=== PATIENT | male | born 1955 | race African-American/Black ===

== ENCOUNTER 2016-10-24 09:11 | Inpatient (IN) ==
[2016-10-24] MEDS ORDERED: SODIUM CHLORIDE 0.9% 500 ML IV STA (09:39)
--- NOTE | 2016-10-24 09:51 | Emergency Department Note ---
Arrival - Arrival Chief Complaint: Weakness ED Nursing Triage Note: pt states felt fine yesterday and this started having genral weakness and fever. denies n/v/cough. pt had cva 09/26 with rt side weakness Mode of Arrival: Stretcher Limitations: No Limitations Source: Patient, Family Time Seen by Provider: 10/24/16 09:39 - History of Present Illness HPI Narrative: This 60-year-old black male presents with abrupt onset of profound weakness associated with low-grade temperature. The family states he was his normal self and in fact they thought yesterday was 1 of his best days. The patient is status post prior CVA with mild right-sided weakness and walks with a cane normally. Today upon awakening he had problems with incontinence and ataxia but at present is alert and oriented 3. The patient and the family denies nausea, vomiting, chills, chest pain, or cough. Currently the patient appears in no acute medical distress. Onset (ago): hour(s) (She presents 18 hours since onset of symptoms) Allergies/Adverse Reactions: Allergies Allergy/AdvReac Type Severity Reaction Status Date / Time No Known Allergies Allergy Unverified 10/24/16 09:20 Review of System - Review of System 12 point system: reviewed and no additional remarkable complaints except as stated - Review of System Constitutional: Present: as per HPI Respiratory: Present: as per HPI Cardiovascular: Present: as per HPI Gastrointestinal: Present: as per HPI Neurological: Present: as per HPI Medical,Surgical,& Family Hx - Medical History Cardio: History of: Hypertension Neurology: History of: Cerebrovascular Accident (09/26) Gastrointestinal: History of: GERD - Social History Smoking Status: Smoker, status unknown Frequency of Alcohol Use: None Type of Drug Use: None Exam Physical Examination: GENERAL: Chronically ill-appearing black male in no acute distress. HEENT: Normocephalic. No trauma. Moist mucous membranes. EOMI. PERRLA. ENT NML NECK: Supple. No adenopathy. CARDIAC: Regular. No murmurs. Heart rate 130 CHEST: Clear to auscultation. No respiratory distress. O2 sat 97% ABDOMEN: Soft. Nontender. Active bowel sounds. EXTREMITIES: No trauma. Normal ROM. No pedal edema. SKIN: No diaphoresis. No rash. NEURO: Alert. Oriented 3. Although a history of right sided motor weakness strength appears equal at this time with sensory and vibratory intact. No focal deficits. Vital Signs: Vital Signs Temperature 99.0 F 10/24/16 09:15 Pulse Rate 134 H 10/24/16 09:15 Respiratory Rate 18 10/24/16 09:23 Blood Pressure 112/85 10/24/16 09:15 O2 Sat by Pulse Oximetry 97 10/24/16 09:15 Course - Reevaluation(s) Reevaluation #1: Advised patient and family the need for hospitalization. - Consultations Consultation #1: Discussed with hospitalist service who will admit for further evaluation treatment. Results - Labs CBC & BMP: 10/24/16 09:50 10/24/16 09:50 Labs: I have reviewed the laboratory noted the elevated white blood cell count. - Diagnostic Findings Procedure: CT: image reviewed by me, report reviewed by me (Head: Status post right occipital craniotomy, small vessel ischemia, cerebral atrophy noted), X- ray: image reviewed by me, report reviewed by me (Right pleural effusion in association with right lower lobe pneumonia) Disposition Clinical Impression: Right lower lobe pneumonia, Right pleural effusion Case discussed with: patient, patient's family Disposition: Still a Patient Condition: Guarded Time of Disposition: 10:45
[2016-10-24 09:57] LABS: Basophils # 0.1 10*3/uL (0.0-0.2); Basophils % 0.2 % (0.0-0.8); Hematocrit 41.4 VOL% (42.0-52.0); Immature Granulocytes % 1.8 %; Immature Granulocytes Absolute 0.65 #; Lymphocytes % 2.8 % (21.2-54.2); Mean Corpuscular HGB Conc 33.8 GM/DL (32-36); Mean Corpuscular Hemoglobin 29 PG (27-34); Mean Corpuscular Volume 85.2 FL (87-102); Monocytes % 5.6 % (1.7-12.7); Neutrophils # 31.7 10*3/uL (1.4-7.4); Neutrophils % 89.6 % (38.7-73.9); Platelet Count 352 T/CUMM (130-400); Red Blood Count 4.86 MC/CUMM (3.8-5.5); White Blood Count 35.4 T/CUMM (4-12)
[2016-10-24 10:05] LABS: INR 1.3; PT Patient Result 14.4 SECS
--- NOTE | 2016-10-24 10:12 | CT Report ---
CT brain Indication: Mental status changes Comparison: None available Technique: Axial CT imaging of the brain is performed without contrast with 3 mm increments. Findings: No evidence of hemorrhage, mass mass effect midline shift or acute infarct seen. There is moderate diffuse cerebral atrophy. There are areas of decreased white matter density in both cerebral hemispheres mostly periventricular in location. The ventricles and cisterns are normal in caliber. Right occipital craniotomy changes are present, appear within normal limits. No other cranial or skull base abnormality is identified. Impression: No evidence of acute process demonstrated. This CT exam was performed using one or more the following dose reduction techniques: Automated exposure control, adjustment of the MA and/or KV according to patient size, or use of iterative reconstruction technique. PROCEDURE INTERPRETED AT [facility] DEPARTMENT OF RADIOLOGY Final Report Signed by: Dr. Irving Garibay
[2016-10-24 10:15] LABS: Giant Platelets Few; Hypochromasia 1+; Lymphocytes 3 % (20-55); Ovalocytes Slight; Platelet Estimate Adequate; Segmented Neutrophils 92 % (50-85); Total Cells Counted 100
--- NOTE | 2016-10-24 10:15 | XRay Report ---
XR chest 1V portable Indication: Altered mental status Comparison: None available Findings: The heart and mediastinum are normal in size and configuration. The pulmonary vascularity is normal in caliber. There is large right pleural effusion and increased right lower lung density. No other lung infiltrates, effusions, pneumothorax or other abnormality is demonstrated. Impression: Large right pleural effusion with increased right lower lung density could indicate pneumonia. PROCEDURE INTERPRETED AT [facility] DEPARTMENT OF RADIOLOGY Final Report Signed by: Dr. Irving Garibay
[2016-10-24 10:27] LABS: Alanine Aminotransferase 15 U/L (16-61); Albumin 2.3 G/DL (3.4-5.0); Alkaline Phosphatase 128 U/L (45-117); Aspartate Amino Transferase 20 U/L (0-37); Blood Urea Nitrogen 7 MG/DL (7-18); Calcium 8.9 MG/DL (8.5-10.1); Glucose 142 MG/DL (74-106); Osmolality,Calculated 269.1 MOS/KG (273-304); Potassium 4.2 MMOL/L (3.5-5.1); Sodium 135 MMOL/L (136-145); Total Protein 7.1 G/DL (6.4-8.3); Troponin I Only < 0.015 NG/ML (0.00-0.045)
[2016-10-24] MEDS ORDERED: LEVOFLOXACIN INJ 750 MG in PREMIX 1 EACH IV STA (10:35)
[2016-10-24] MEDS ORDERED: ALBUTEROL/IPRATROPIUM 3 ML NEB RESP TX STA (10:35)
[2016-10-24] MEDS ORDERED: LEVOFLOXACIN INJ 150 ML IV ONE (10:48)
--- NOTE | 2016-10-24 11:01 | EKG Report ---
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
[2016-10-24 11:06] LABS: Apearance,Urine CLOUDY (Clear); Bilirubin,Urine Negative (Negative); Blood, Urine Negative (Negative); Glucose,Urine (UA) 50 mg/dL (Negative); Hyaline Casts,Urine 22 /LPF (0-3); Ketones,Urine 5 mg/dL (Negative); Mucus,Urine Many /LPF (Occasional); Nitrite,Urine Negative (Negative); Protein,Urine 100 MG/DL; RBC,Urine 8 /HPF (0-4); Squamous Epithelial Cell,Urine Occasional /HPF (0-10); Urine Color Yellow (Yellow); Urine Specific Gravity 1.015 (1.001-1.035); WBC,Urine 231 /HPF (0-6)
[2016-10-24 11:10] LABS: Barbiturates Screen,Urine Negative (Negative); Benzodiazepines Screen,Urine Negative (Negative); Cannabinoid Screen,Urine Negative (Negative); Opiate Screen,Urine Negative (Negative); Phencyclidine Screen,Urine Negative (Negative)
--- NOTE | 2016-10-24 11:42 | Hospitalist History & Physical ---
Addendum entered and electronically signed by Elva Grider NP 10/24/16 12:21: Patient Sepsis initiated related to HR 133, WBC 35.4, ordered Lactic Acid and pending results. (Temp 99.0) Original Note: Assessment and Plan - Time spent with patient Time spent with patient: Greater than 30 minutes (1) Generalized weakness Status: Acute Current Visit: Yes (2) Pneumonia Status: Acute Assessment and plan: 10/24/16 - admit on monitored bed Blood cultures (collected in ED) start IV antibiotics (levaquin given in ED) duonebs urine culture (collected in ED) IV hydration repeat labs in a.m. will discuss with Dr Chopra for further recommendations with care Current Visit: Yes History of Present Illness Chief complaint: generalized weakness, fever, pneumonia History of present illness: Mr. Arreguin is a 60 year old black male w/PMHx hypertension, CVA (september 2016 w/rt sided weakness), GERD presented to the ED for further evaluation of this a.m. feeling generalized weakness and an episode of incontinence without LOC or confusion. He reports some shortness of breath this a.m. Reports has had weakness more on the right side since stroke in september but is able to ambulate with assistance of getting up and then using a cane but was unable to get out of bed this morning in time to go to the bathroom and he urinated on himself. Denies any nausea, vomiting, chest pain or headaches. IN ED: WBC 35.4, Na 135, Anion Gap 15.2, Glucose 142, ALT 15, Alkaline Phos 128, TCK 38. CXR: large right pleural effusion with increased right lower lung density could indicate pneumonia. Head CT: no evidence of acute process. EKG: sinus tachy rate 129, right ventricular hypertrophy no acute injury. After discussion with Dr Man in ED and Dr Chopra with Hospital Medicine, it was agreed to admit on monitor bed for further evaluation. Home medications to be reviewed and reconciliation to follow. Allergies Allergy/AdvReac Type Severity Reaction Status Date / Time No Known Allergies Allergy Unverified 10/24/16 09:20 Medical,Surgical,& Family Hx - Medical History Cardio: History of: Hypertension Neurology: History of: Cerebrovascular Accident (09/26 with right sided weakness) Gastrointestinal: History of: GERD - Social History Smoking Status: Smoker, status unknown Frequency of Alcohol Use: None Type of Drug Use: None Lives With:: lives with Son Functional capacity: uses cane/walker 12 point system: reviewed and no additional remarkable complaints except as stated - Constitutional Constitutional: Present: fever(s) - Cardiovascular Cardiovascular: Present: dyspnea on exertion. Absent: chest pain at rest, chest pain with activity - Respiratory Respiratory: Present: cough. Absent: wheezing - Genitourinary Genitourinary: Absent: dysuria Exam - Constitutional Vitals: Period Temp Pulse Resp BP Sys/Palm Pulse Ox Last 24 Hr 99.0 F-99.0 F 134-134 18-18 112-112/85-85 97 General appearance: normal weight, no acute distress - Head Head exam: Present: normal inspection - ENT ENT exam: Present: other (very minimal tongue deviation to the Right (hx: right sided CVA 09/2016)) - Neck Neck exam: Present: normal inspection - Respiratory Respiratory exam: Present: rales. Absent: wheezes - Cardiovascular Cardiovascular exam: Present: tachycardia (133) - GI/Abdominal GI/Abdominal exam: Present: normal bowel sounds, soft. Absent: guarding, tenderness, rebound - Extremities Exam Extremities exam: Present: normal inspection, full ROM (minimally weak on the right side compared to the left (hx: CVA 09/2016)). Absent: edema - Back Exam Back exam: Present: normal inspection - Neurological Exam Neurological exam: Present: alert, oriented X3, CN II-XII intact - Psychiatric Psychiatric exam: Present: normal affect, normal mood. Absent: agitated, anxious - Skin Skin exam: Present: normal color, warm, dry Results - Labs CBC & BMP: 10/24/16 09:50 10/24/16 09:50 Lab Results: I have reviewed the past 24 hour labs - EKG EKG results: interpreted by ERMD - Diagnostic Findings Procedure: Chest x-ray: report reviewed by me (Large right pleural effusion with increased right lower lung density indicate pneumonia), CT: report reviewed by me (Head: Nothing acute)
[2016-10-24] MEDS ORDERED: ONDANSETRON 4 MG/2 ML VIAL IV PRN (12:15)
[2016-10-24] MEDS ORDERED: ACETAMINOPHEN 325 MG TABLET PO PRN (12:15)
[2016-10-24] MEDS ORDERED: LEVOFLOXACIN INJ 750 MG in PREMIX 1 EACH IV SCH (12:30)
[2016-10-24] MEDS: SODIUM CHLORIDE 0.9% 1,000 ML IV SCH ×2 (13:24→21:38)
--- NOTE | 2016-10-24 16:12 | Pulmonology Consult Note ---
Assessment and Plan (1) Empyema Status: Acute Assessment and plan: His chest x-ray and clinical picture certainly looks like he could have empyema. He will need a thoracentesis and likely a tube Current Visit: Yes (2) History of cerebral hemorrhage Status: Acute Assessment and plan: Patient says he has had a craniotomy at [place] for cerebral hemorrhage. Current Visit: Yes (3) Pneumonia Status: Acute Assessment and plan: Patient will be treated for pneumonia Current Visit: Yes History of Present Illness Chief complaint: Shortness of breath History of present illness: Mr. Arreguin is a 60 year old black male that has a history of hypertension and has been a smoker. He has a history of GE reflux. He apparently had an aneurysm that ruptured he said he had a craniotomy at [place]. He apparently is quite debilitated from this but he does walk with a walker. He said the past couple days he has not been able to get out of bed. He comes in now with a low-grade fever and elevated white count and looks like he has pneumonia and possible empyema. He says he has not been vomiting and he does cough a little bit. He is not complaining of much shortness of breath or chest pain. He denies having trouble swallowing. He does not appear to be very active and certainly appears chronically ill. Home Medications Medication Instructions Recorded Confirmed Type Benzonatate [Tessalon] 100 mg PO TID PRN 10/24/16 10/24/16 History Carvedilol 25 mg PO BID 10/24/16 10/24/16 History FLUoxetine [PROzac] 20 mg PO QAM 10/24/16 10/24/16 History Methocarbamol Tab [Robaxin Tab] 750 mg PO BID 10/24/16 10/24/16 History Pantoprazole Tab [Protonix Tab] 40 mg PO QAM 10/24/16 10/24/16 History Allergies Allergy/AdvReac Type Severity Reaction Status Date / Time No Known Allergies Allergy Unverified 10/24/16 09:20 - Constitutional Constitutional: Present: chills, fatigue, fever(s), weakness - EENT Eyes: Absent: loss of vision Ears: Absent: decreased hearing Nose, mouth and throat: Absent: dysphagia, headache(s), sinus pressure - Cardiovascular Cardiovascular: Present: dyspnea. Absent: chest pain at rest, edema, orthopnea , PND - Respiratory Respiratory: Present: cough, pain on inspiration, change in phlegm color. Absent: wheezing - Gastrointestinal Gastrointestinal: Absent: abdominal pain, change in bowel habits, dysphagia, nausea, vomiting - Genitourinary Genitourinary: Absent: dysuria, nocturia, urinary frequency - Musculoskeletal Musculoskeletal: Absent: arthralgias - Neurological Neurological: Present: abnormal speech, focal weakness - Psychiatric Psychiatric: Absent: anxiety Exam (Pulmonay) H&P - Constitutional Vitals: Period Temp Pulse Resp BP Sys/Palm Pulse Ox Last 24 Hr 98.7 F-99.0 F 134-134 18-20 102-112/68-85 97 General appearance: no acute distress, under weight, other (He looks comfortable in bed and is chronically ill-appearing) - Head Head exam: Present: normal inspection - Eye Eye exam: Present: EOMI. Absent: scleral icterus Pupils: Present: JONATHAN - ENT ENT exam: Present: normal exam - Neck Neck exam: Absent: lymphadenopathy, thyromegaly - Respiratory Respiratory exam: Present: decreased breath sounds (He does have diminished breath sounds in the right), rhonchi. Absent: wheezes - Cardiovascular Cardiovascular exam: Present: regular rate and rhythm, tachycardia. Absent: gallop, systolic murmur - GI/Abdominal GI/Abdominal exam: Present: normal bowel sounds, soft. Absent: organomegaly, tenderness - Extremities Exam Extremities exam: Absent: calf tenderness, edema - Neurological Exam Neurological exam: Present: alert, motor sensory deficit (He does appear to be very weak) - Psychiatric Psychiatric exam: Present: normal affect - Skin Skin exam: Present: warm, dry Medical,Surgical,& Family Hx - Medical History Cardio: History of: Hypertension Neurology: History of: Cerebrovascular Accident (09/26 with right sided weakness) Gastrointestinal: History of: GERD - Social History Smoking Status: Former smoker Frequency of Alcohol Use: None Type of Drug Use: None Results - Labs CBC & BMP: 10/24/16 09:50 10/24/16 09:50 - Diagnostic Findings Procedure: Chest x-ray: image reviewed by me, report reviewed by me (Chest x- ray shows a right lower lobe consolidation with a fairly large effusion.)
[2016-10-24] MEDS: CLINDAMYCIN INJ 900 MG in PREMIX 1 EACH IV SCH ×2 (17:38→23:27)
[2016-10-25] MEDS: ALBUTEROL/IPRATROPIUM 3 ML NEB RESP TX PRN ×3 (01:11→17:36)
[2016-10-25 05:30] LABS: Basophils % 0.1 % (0.0-0.8); Eosinophils % 0.1 % (0.00-10.9); Hematocrit 33.4 VOL% (42.0-52.0); Hemoglobin 11.2 GM/DL (14.0-18.0); Immature Granulocytes % 1.3 %; Immature Granulocytes Absolute 0.38 #; Lymphocytes # 1.3 10*3/uL (1.4-4.0); Lymphocytes % 4.5 % (21.2-54.2); Mean Corpuscular HGB Conc 33.5 GM/DL (32-36); Mean Corpuscular Hemoglobin 29 PG (27-34); Mean Corpuscular Volume 85.6 FL (87-102); Mean Platelet Volume 9.3 FL (9.6-12.0); Monocytes # 1.9 10*3/uL (0.11-0.8); Monocytes % 6.4 % (1.7-12.7); Neutrophils # 25.5 10*3/uL (1.4-7.4); Neutrophils % 87.6 % (38.7-73.9); Platelet Count 296 T/CUMM (130-400); Red Cell Distribution Width 14.2 % (9.3-17.3); White Blood Count 29.1 T/CUMM (4-12)
[2016-10-25] MEDS: SODIUM CHLORIDE 0.9% 1,000 ML IV SCH ×2 (05:49→20:27)
[2016-10-25 05:52] LABS: Calcium 8.4 MG/DL (8.5-10.1); Osmolality,Calculated 274.5 MOS/KG (273-304); Potassium 3.6 MMOL/L (3.5-5.1)
[2016-10-25 06:03] LABS: Band Neutrophils 4 % (0-10); Eosinophils 1 % (0-10); Lymphocytes 3 % (20-55); Platelet Estimate Adequate; Segmented Neutrophils 89 % (50-85); Total Cells Counted 100
[2016-10-25 06:04] LABS: Giant Platelets Few; Hypochromasia 1+
[2016-10-25] MEDS: CLINDAMYCIN INJ 900 MG in PREMIX 1 EACH IV SCH ×3 (06:30→23:03)
--- NOTE | 2016-10-25 08:46 | Pulmonology Progress Note ---
Pulmonary - PN: Subj Interval history: Mr. Arreguin is a 60 year old black male that has a history of hypertension and has been a smoker. He has a history of GE reflux. He apparently had an aneurysm that ruptured he said he had a craniotomy at [place]. He apparently is quite debilitated from this but he does walk with a walker. He said the past couple days he has not been able to get out of bed. He comes in now with a low-grade fever and elevated white count and looks like he has pneumonia and possible empyema. He says he has not been vomiting and he does cough a little bit. He is not complaining of much shortness of breath or chest pain. He denies having trouble swallowing. He does not appear to be very active and certainly appears chronically ill. He said he was reasonably comfortable last night did not have any fever. He is not coughing up any sputum. He denies having much chest pain. Exam (Progress Note) - Constitutional Vitals: Period Temp Pulse Resp BP Sys/Palm Pulse Ox Last 24 Hr 97.5 F-99.0 F 82-134 16-20 102-121/67-85 97-99 Exam: General appearance: no acute distress, under weight, other (He looks comfortable in bed and is chronically ill-appearing. He still does not have any distress.) - Head Head exam: Present: normal inspection - Eye Eye exam: Present: EOMI. Absent: scleral icterus Pupils: Present: JONATHAN - ENT ENT exam: Present: normal exam - Neck Neck exam: Absent: lymphadenopathy, thyromegaly - Respiratory Respiratory exam: Present: He does have decreased breath sounds in the right base and his left lung is fairly clear. - Cardiovascular Cardiovascular exam: Present: regular rate and rhythm, tachycardia. Absent: gallop, systolic murmur - GI/Abdominal GI/Abdominal exam: Present: normal bowel sounds, soft. Absent: organomegaly, tenderness - Extremities Exam Extremities exam: Absent: calf tenderness, edema - Neurological Exam Neurological exam: Present: alert, motor sensory deficit (He does appear to be very weak) - Psychiatric Psychiatric exam: Present: normal affect - Skin Skin exam: Present: warm, dry Results - Labs CBC & BMP: 10/25/16 04:48 10/25/16 04:48 Assessment and Plan (1) Empyema Status: Acute Assessment and plan: His chest x-ray and clinical picture certainly looks like he could have empyema. Radiology will try to place a catheter today. Current Visit: Yes (2) History of cerebral hemorrhage Status: Acute Assessment and plan: Patient says he has had a craniotomy at [place] for cerebral hemorrhage. His CT is fairly stable at present. Current Visit: Yes (3) Pneumonia Status: Acute Assessment and plan: Patient will be treated for pneumonia. He will have a thoracentesis today. Current Visit: Yes
--- NOTE | 2016-10-25 10:11 | CT Report ---
CT chest w con Indication: Empyema Comparison: None available Technique: Axial CT imaging of the chest was done at 3 mm intervals with intravenous contrast. Contrast dose was Omnipaque 350. Findings: There is a multiloculated the large effusion on the right with near complete atelectasis of the right lower lobe. There are small pockets of air in some of the loculations present. Remaining lungs show no evidence of infiltrates or airspace disease. No nodule or mass is identified. No other effusion or pneumothorax is seen. Few nonenlarged lymph nodes are seen in the mediastinum. Otherwise the heart, mediastinum and great vessels appear within normal limits. No other abnormality is identified. Impression: Multiloculated effusion/empyema. No other evidence of abnormality demonstrated. This CT exam was performed using one or more the following dose reduction techniques: Automated exposure control, adjustment of the MA and/or KV according to patient size, or use of iterative reconstruction technique. PROCEDURE INTERPRETED AT [facility] DEPARTMENT OF RADIOLOGY Final Report Signed by: Dr. Irving Garibay
[2016-10-25] MEDS: LEVOFLOXACIN INJ 750 MG in PREMIX 1 EACH IV SCH (12:55)
--- NOTE | 2016-10-25 13:15 | Physician Query Form ---
CLICK EDIT DOCUMENT TO SELECT QUERY ANSWER --> OK --> SIGN Fatemeh Tong RN, CCDS Certified Clinical Continuity Person W) [phone] (f) [phone] [email or web address] PROVIDERS: Make your selection(s) from the choices in EACH section by typing an "x" and enter comments in the comment section. Please use your independent medical judgment in providing your response. This request does not imply that any particular answer is desired or expected. CLINICAL INDICATORS: (Providers should not edit this section) The medical record indicates that the patient was admitted with Pneumonia, urine leukocytes "Large H", Urine WBC 231#, WBC 35.4#, and the patient was placed on antibiotics. Based on the above, could you clarify the appropriate diagnosis, if significant , that supports the above abnormalities and additional evaluation, monitoring, and/or treatment rendered: ( ) Patient is not being monitored or treated for UTI ( x) Patient is being monitored or treated for UTI ( ) Other, please specify: ( ) Clinically unable to determine COMMENTS: PLEASE ALSO DOCUMENT RESPONSE IN PROGRESS NOTES AND/OR DISCHARGE SUMMARY Use of terms such as suspected, likely, or probable (associated with a specific diagnosis that is being evaluated, monitored, or treated as if it exists) are acceptable and can be restated in the discharge summary if not ruled out. MTDD
--- NOTE | 2016-10-25 16:28 | EKG Report ---
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
[2016-10-25] MEDS: PANTOPRAZOLE 40 MG TABLET PO SCH (17:11)
[2016-10-25] MEDS: TEMAZEPAM 15 MG CAPSULE PO PRN (20:28)
--- NOTE | 2016-10-25 20:44 | Hospitalist Progress Note ---
Assessment and Plan (1) Pneumonia Status: Acute Assessment and plan: Continue IV Antibiotics Current Visit: Yes Qualifiers: Pneumonia type: due to unspecified organism Laterality: right Lung location: lower lobe of lung Qualified Code(s): J18.1 - Lobar pneumonia, unspecified organism (2) Empyema Status: Acute Assessment and plan: Pt has a Right chest Tube. Appreciate Dr Sarthak chavez. Current Visit: Yes Hospitalist: Subjective Interval history: 60 yo M admitted with Pneumonia & Empyema. He is awake and comfortable. Exam - Constitutional Vitals: Period Temp Pulse Resp BP Sys/Palm Pulse Ox Last 24 Hr 97.5 F-98.4 F 80-104 16-20 107-134/65-80 95-100 General appearance: no acute distress - Head Head exam: Present: normal inspection - Eye Eye exam: Present: EOMI Pupils: Present: JONATHAN - Respiratory Respiratory exam: Present: rales, rhonchi - Cardiovascular Cardiovascular exam: Present: regular rate and rhythm - GI/Abdominal GI/Abdominal exam: Present: normal bowel sounds, soft - Extremities Exam Extremities exam: Present: normal inspection, normal capillary refill Results - Labs CBC & BMP: 10/25/16 04:48 10/25/16 04:48
[2016-10-25] MEDS: PIPERACILLIN/TAZOBACTAM 3,375 MG in SODIUM CHLORIDE 0.9% 100 ML IV SCH (23:59)
[2016-10-26] MEDS: CLINDAMYCIN INJ 900 MG in PREMIX 1 EACH IV SCH ×3 (06:08→22:17)
--- NOTE | 2016-10-26 08:26 | Hospitalist Progress Note ---
Assessment and Plan (1) Generalized weakness Status: Acute Current Visit: Yes (2) Pneumonia Status: Acute Assessment and plan: As noted above, he is presently being treated with intravenous Zosyn, levofloxacin, and clindamycin. He is being followed by Dr. De León pulmonary. Current Visit: Yes Qualifiers: Pneumonia type: due to unspecified organism Laterality: right Lung location: lower lobe of lung Qualified Code(s): J18.1 - Lobar pneumonia, unspecified organism (3) Empyema Status: Acute Assessment and plan: See above. Current Visit: Yes (4) History of cerebral hemorrhage Status: Acute Current Visit: Yes Hospitalist: Subjective Interval history: Mr. Arreguin is hospitalized with pneumonia and empyema. He is a severely debilitated 60-year-old -Prydeinig male who had a previous craniotomy for a ruptured intracranial aneurysm. He is being treated with intravenous Zosyn, levofloxacin, and clindamycin for his pneumonia and empyema. He is being followed by Dr. De León of pulmonary. Exam - Constitutional Vitals: Period Temp Pulse Resp BP Sys/Palm Pulse Ox Last 24 Hr 97.1 F-99.7 F 79-104 16-20 108-196/65-97 95-100 General appearance: no acute distress, under weight - Head Head exam: Present: normal inspection - Neck Neck exam: Present: normal inspection - Respiratory Respiratory exam: Present: other (Decreased right basilar breath sounds.) - Cardiovascular Cardiovascular exam: Present: regular rate and rhythm - GI/Abdominal GI/Abdominal exam: Present: normal bowel sounds, soft, other (Nontender with no palpable mass or hepatosplenomegaly.) - Extremities Exam Extremities exam: Present: normal inspection - Neurological Exam Neurological exam: Present: other (Lethargic) - Psychiatric Psychiatric exam: Present: flat affect - Skin Skin exam: Present: normal color, warm, intact Results - Labs CBC & BMP: 10/25/16 04:48 10/25/16 04:48
[2016-10-26] MEDS: PIPERACILLIN/TAZOBACTAM 3,375 MG in SODIUM CHLORIDE 0.9% 100 ML IV SCH ×3 (09:27→23:52)
[2016-10-26] MEDS: PANTOPRAZOLE 40 MG TABLET PO SCH (09:30)
--- NOTE | 2016-10-26 10:48 | Pulmonology Progress Note ---
Pulmonary - PN: Subj Interval history: This 60-year-old man had a loculated right pleural effusion drained yesterday by interventional radiology. The fluid looks opaque and yellow orange. Cultures have been sent. Gram stain showed some white cells but no bacteria. I do not see where any chemistries or written white cell count or AFB smears for cytology were done. We will see if there is some fluid left that it can be done upon. Patient feels really no different today. No chest x-ray today will order one for tomorrow. He seems to be eating and lucid. Exam (Progress Note) - Constitutional Vitals: Period Temp Pulse Resp BP Sys/Palm Pulse Ox Last 24 Hr 97.1 F-99.7 F 75-104 16-20 108-196/65-97 95-99 Exam: Patient is responsive. Vital signs normal. Pupils react to light. Throat is clear. Neck supple no bruits. Chest shows a pleural catheter coming from the anterior axillary line and right chest. The fluid is yellow orange and opaque. Chest shows a few rhonchi on the right side. Heart normal rate rhythm no murmurs. Abdomen soft nontender no masses. Extremities no clubbing cyanosis edema. Calves nontender. Results - Labs CBC & BMP: 10/25/16 04:48 10/25/16 04:48 Lab Results: I have reviewed the past 24 hour labs Assessment and Plan (1) Generalized weakness Status: Acute Assessment and plan: We will need physical therapy at some point. This is the result of a previous CVA. Current Visit: Yes (2) Empyema Status: Acute Assessment and plan: Presumably he has an empyema which is loculated on the right side. Cultures are pending. Did not have other studies to verify this. Current Visit: Yes (3) History of cerebral hemorrhage Status: Acute Assessment and plan: Patient is able to communicate without difficulty. Current Visit: Yes
[2016-10-26 11:53] LABS: Total Protein,Pleural Fluid 4.9 G/DL
[2016-10-26] MEDS: LEVOFLOXACIN INJ 750 MG in PREMIX 1 EACH IV SCH (14:42)
[2016-10-26] MEDS: SODIUM CHLORIDE 0.9% 1,000 ML IV SCH (16:15)
[2016-10-26 17:04] LABS: Lymphocytes,Pleural Fluid 90 %; Neutrophils,Pleural Fluid 10 %; RBC,Pleural Fluid 1002 T/CUMM
[2016-10-26] MEDS: TEMAZEPAM 15 MG CAPSULE PO PRN (20:59)
[2016-10-27 04:21] LABS: Basophils % 0.2 % (0.0-0.8); Eosinophils # 0.2 10*3/uL (0.0-0.87); Eosinophils % 2.1 % (0.00-10.9); Hematocrit 33.8 VOL% (42.0-52.0); Hemoglobin 11.3 GM/DL (14.0-18.0); Immature Granulocytes % 0.6 %; Immature Granulocytes Absolute 0.05 #; Lymphocytes % 10.6 % (21.2-54.2); Mean Corpuscular HGB Conc 33.4 GM/DL (32-36); Mean Corpuscular Hemoglobin 29 PG (27-34); Mean Corpuscular Volume 85.1 FL (87-102); Mean Platelet Volume 9.6 FL (9.6-12.0); Monocytes # 0.7 10*3/uL (0.11-0.8); Monocytes % 7.6 % (1.7-12.7); Neutrophils # 7.2 10*3/uL (1.4-7.4); Neutrophils % 78.9 % (38.7-73.9); Platelet Count 336 T/CUMM (130-400); Red Blood Count 3.97 MC/CUMM (3.8-5.5); Red Cell Distribution Width 14.3 % (9.3-17.3); White Blood Count 9.1 T/CUMM (4-12)
[2016-10-27 04:42] LABS: Calcium 8.2 MG/DL (8.5-10.1); Potassium 3.7 MMOL/L (3.5-5.1)
[2016-10-27] MEDS: CLINDAMYCIN INJ 900 MG in PREMIX 1 EACH IV SCH ×3 (06:07→22:22)
--- NOTE | 2016-10-27 08:50 | Hospitalist Progress Note ---
Assessment and Plan (1) Generalized weakness Status: Acute Current Visit: Yes (2) Pneumonia Status: Acute Assessment and plan: As noted above, he is presently being treated with intravenous Zosyn, levofloxacin, and clindamycin. He is being followed by Dr. Erickson pulmonary. He is status post thoracentesis for his right-sided empyema. Follow-up chest x- ray this morning appears to demonstrate a persistent effusion and infiltrate. Current Visit: Yes Qualifiers: Pneumonia type: due to unspecified organism Laterality: right Lung location: lower lobe of lung Qualified Code(s): J18.1 - Lobar pneumonia, unspecified organism (3) Empyema Status: Acute Assessment and plan: See above. Current Visit: Yes (4) History of cerebral hemorrhage Status: Acute Current Visit: Yes (5) UTI (urinary tract infection) Status: Acute Assessment and plan: Urine culture demonstrated pseudomonas aeruginosa, sensitive to levofloxacin. Current Visit: Yes Qualifiers: Urinary tract infection type: site unspecified Hospitalist: Subjective Interval history: Mr. Arreguin is hospitalized with pneumonia and empyema. He is status post right thoracentesis 2 days ago. Repeat chest x-ray performed this morning demonstrates a persistent large right infiltrate and probable persistent effusion. He is a severely debilitated 60-year-old -[place] male who had a previous craniotomy for a ruptured intracranial aneurysm. He is being treated with intravenous Zosyn, levofloxacin, and clindamycin for his pneumonia and empyema. He is being followed by Dr. Erickson of pulmonary. Exam - Constitutional Vitals: Period Temp Pulse Resp BP Sys/Palm Pulse Ox Last 24 Hr 97.3 F-98.2 F 80-87 18-22 105-123/60-81 93-100 General appearance: no acute distress, other (Chronically ill-appearing) - Head Head exam: Present: normal inspection - Neck Neck exam: Present: normal inspection - Respiratory Respiratory exam: Present: other (Absent right basilar breath sounds.) - Cardiovascular Cardiovascular exam: Present: regular rate and rhythm - GI/Abdominal GI/Abdominal exam: Present: normal bowel sounds, soft, other (Nontender with no palpable masses or hepatosplenomegaly.) - Extremities Exam Extremities exam: Present: normal inspection - Neurological Exam Neurological exam: Present: alert, oriented X3 - Skin Skin exam: Present: normal color, warm, intact Results - Labs CBC & BMP: 10/27/16 03:21 10/27/16 03:21
--- NOTE | 2016-10-27 10:12 | XRay Report ---
Single view the chest. Indication: Right-sided empyema. Comparison: October 24, 2016. There is a pigtail catheter in the right pleural space. Persistent extensive pleural and parenchymal abnormality on the right are unchanged. The left lung is clear. The heart is normal in size. Impression: Status post pigtail catheter placement. Extensive pleural and parenchymal abnormality of the right lung not significantly changed. PROCEDURE INTERPRETED AT [facility] DEPARTMENT OF RADIOLOGY Final Report Signed by: Dr. Joanie Chung
[2016-10-27] MEDS: PIPERACILLIN/TAZOBACTAM 3,375 MG in SODIUM CHLORIDE 0.9% 100 ML IV SCH ×3 (10:14→23:54)
[2016-10-27] MEDS: PANTOPRAZOLE 40 MG TABLET PO SCH (10:19)
--- NOTE | 2016-10-27 10:21 | Pulmonology Progress Note ---
Pulmonary - PN: Subj Interval history: This 60-year-old man had a loculated right pleural effusion drained yesterday by interventional radiology. The fluid looks opaque and yellow orange. Cultures have been sent. Gram stain showed some white cells but no bacteria. I do not see where any chemistries or written white cell count or AFB smears for cytology were done. We will see if there is some fluid left that it can be done upon. Patient feels really no different today. No chest x-ray today will order one for tomorrow. He seems to be eating and lucid. 10/27/2016 patient is afebrile has no new complaints. He is put out a total of 180 mL from the right pleural catheter. Chest x-ray shows little change. The pleural fluid showed 90% of the white cells were lymphocytes. LDH elevated.. Would be concerned about a chronic infection such as TB. Also will be concerned about a possible malignancy. With the long not expanding well may want to consider a larger chest tube or VATS procedure. Exam (Progress Note) - Constitutional Vitals: Period Temp Pulse Resp BP Sys/Palm Pulse Ox Last 24 Hr 97.3 F-98.2 F 79-87 16-22 105-136/60-92 93-100 Exam: Patient is responsive. Vital signs normal. Pupils react to light. Throat is clear. Neck supple no bruits. Chest shows a pleural catheter coming from the anterior axillary line and right chest. The fluid is yellow orange and opaque. Chest shows a few rhonchi on the right side. Heart normal rate rhythm no murmurs. Abdomen soft nontender no masses. Extremities no clubbing cyanosis edema. Calves nontender. Results - Labs CBC & BMP: 10/27/16 03:21 10/27/16 03:21 Lab Results: I have reviewed the past 24 hour labs - Diagnostic Findings Procedure: Chest x-ray: image reviewed by me (Unchanged. Pleural catheter and right pleural space. Opacification of about two thirds of the right chest.) Assessment and Plan (1) Generalized weakness Status: Acute Assessment and plan: We will need physical therapy at some point. This is the result of a previous CVA. Current Visit: Yes (2) Empyema Status: Acute Assessment and plan: Presumably he has an empyema which is loculated on the right side. Cultures are pending. Did not have other studies to verify this. 10/27/2016 apparent empyema however pleural fluid white count is primarily lymphocytic. This would suggest either a chronic infectious process or malignancy rather than an empyema. Cultures pending. May require further intervention. Current Visit: Yes (3) History of cerebral hemorrhage Status: Acute Assessment and plan: Patient is able to communicate without difficulty. Current Visit: Yes
[2016-10-27] MEDS: LEVOFLOXACIN INJ 750 MG in PREMIX 1 EACH IV SCH (14:34)
[2016-10-27] MEDS: TEMAZEPAM 15 MG CAPSULE PO PRN (20:21)
[2016-10-27] MEDS: SODIUM CHLORIDE 0.9% 1,000 ML IV SCH ×2 (20:23→22:23)
[2016-10-28] MEDS: CLINDAMYCIN INJ 900 MG in PREMIX 1 EACH IV SCH ×2 (06:15→16:12)
[2016-10-28] MEDS: PANTOPRAZOLE 40 MG TABLET PO SCH (09:06)
[2016-10-28] MEDS: PIPERACILLIN/TAZOBACTAM 3,375 MG in SODIUM CHLORIDE 0.9% 100 ML IV SCH ×2 (09:34→16:42)
--- NOTE | 2016-10-28 12:38 | Hospitalist Progress Note ---
Assessment and Plan (1) Pneumonia Status: Acute Assessment and plan: Continue IV Antibiotics Current Visit: Yes Qualifiers: Pneumonia type: due to unspecified organism Laterality: right Lung location: lower lobe of lung Qualified Code(s): J18.1 - Lobar pneumonia, unspecified organism (2) Empyema Status: Acute Assessment and plan: Pt has a Right chest Tube. Appreciate Dr Sarthak chavez. Current Visit: Yes Hospitalist: Subjective Interval history: 60-year-old male in the hospital for pneumonia and and right empyema, he has a right chest tube. He is awake and comfortable. Exam - Constitutional Vitals: Period Temp Pulse Resp BP Sys/Palm Pulse Ox Last 24 Hr 97.4 F-98.6 F 64-79 18-22 138-161/93-100 97-100 Exam: General: [No Acute Distress] HEENT: [Normocephalic, atraumatic, Extra ocular movements intact] Neck: [Supple, No JVD] Chest: [Clear to auscultation B/L] CV: [S1 + S2 audible without murmur, gallop or rub] Abd: [soft, NT, Non-distended, BS +] Ext: [No edema] Skin: [No purpura, bruising or rash] Rheumatologic: [No Joint deformities] Neurologic: [Awake and alert] Results - Labs CBC & BMP: 10/27/16 03:21 10/27/16 03:21 - Impressions Assessment and Plan Right lung pneumonia with Empyema Status: Acute Assessment and plan: This appears loculated, he has a chest tube in place. Pleural fluid white count is primarily lymphocytic, that points to a chronic infectious process or malignancy rather than an empyema. Follow-up cultures. Continue Levaquin, clindamycin and Zosyn Current Visit: Yes Pseudomonas UTI, POA Status: Acute Assessment and plan: This is a sensitive Pseudomonas, continue current antibiotics Current Visit: Yes Qualifiers: History of cerebral hemorrhage due to a ruptured intracranial aneurysm with previous craniotomy Status: Chronic Assessment and plan: This is stable Current Visit: No Physical deconditioning and generalized weakness Status: Acute Assessment and plan: Patient had limited mobility at baseline and was only moving with help of assistance and walker. Will initiate physical therapy once he is more improved from the lung standpoint. Ultimately he may need to go to a swing bed. Current Visit: Yes
--- NOTE | 2016-10-28 13:05 | Pulmonology Progress Note ---
Pulmonary - PN: Subj Interval history: Mr. Arreguin is a 60 year old black male that has a history of hypertension and has been a smoker. He has a history of GE reflux. He apparently had an aneurysm that ruptured he said he had a craniotomy at [facility]. He apparently is quite debilitated from this but he does walk with a walker. He said the past couple days he has not been able to get out of bed. He comes in now with a low-grade fever and elevated white count and looks like he has pneumonia and possible empyema. He says he has not been vomiting and he does cough a little bit. He is not complaining of much shortness of breath or chest pain. He denies having trouble swallowing. He does not appear to be very active and certainly appears chronically ill. He has been feeling okay over the weekend without a lot of fever. He does have a pneumothorax catheter in the right chest and is draining a little bit. His chest x-ray is not a lot better. He may need a decortication. Exam (Progress Note) - Constitutional Vitals: Period Temp Pulse Resp BP Sys/Palm Pulse Ox Last 24 Hr 97.4 F-98.6 F 64-79 18-22 138-161/93-100 97-100 Exam: General appearance: no acute distress, under weight, other (He looks comfortable in bed and is chronically ill-appearing. He still does not have any distress. He looks quite comfortable) - Head Head exam: Present: normal inspection - Eye Eye exam: Present: EOMI. Absent: scleral icterus Pupils: Present: JONATHAN - ENT ENT exam: Present: normal exam - Neck Neck exam: Absent: lymphadenopathy, thyromegaly - Respiratory Respiratory exam: Present: He still has decreased breath sounds on the right side. He is not wheezing. He has a small chest tube on the right. - Cardiovascular Cardiovascular exam: Present: regular rate and rhythm, tachycardia. Absent: gallop, systolic murmur - GI/Abdominal GI/Abdominal exam: Present: normal bowel sounds, soft. Absent: organomegaly, tenderness - Extremities Exam Extremities exam: Absent: calf tenderness, edema - Neurological Exam Neurological exam: Present: alert, motor sensory deficit (He does appear to be very weak) - Psychiatric Psychiatric exam: Present: normal affect - Skin Skin exam: Present: warm, dry Results - Labs CBC & BMP: 10/27/16 03:21 10/27/16 03:21 Assessment and Plan (1) Empyema Status: Acute Assessment and plan: His chest x-ray and clinical picture certainly looks like he could have empyema. Clinically he does not look bad but his chest x-ray still looks worrisome. He may need further drainage procedures. Current Visit: Yes (2) History of cerebral hemorrhage Status: Acute Assessment and plan: Patient says he has had a craniotomy at [facility] for cerebral hemorrhage. His CT is fairly stable at present. Current Visit: Yes (3) Pneumonia Status: Acute Assessment and plan: Patient will be treated for pneumonia. So far there is nothing growing on culture. His chest x-ray does not look any better. He may need decortication. Current Visit: Yes Qualifiers: Pneumonia type: due to unspecified organism Laterality: right Lung location: lower lobe of lung Qualified Code(s): J18.1 - Lobar pneumonia, unspecified organism
[2016-10-28] MEDS: ENOXAPARIN 40 MG/0.4 ML SYRINGE SUBCUT SCH (14:13)
[2016-10-28] MEDS: LEVOFLOXACIN INJ 750 MG in PREMIX 1 EACH IV SCH (20:52)
[2016-10-28] MEDS: SODIUM CHLORIDE 0.9% 1,000 ML IV SCH (20:52)
[2016-10-29] MEDS: CLINDAMYCIN INJ 900 MG in PREMIX 1 EACH IV SCH ×4 (00:50→23:54)
[2016-10-29] MEDS: PIPERACILLIN/TAZOBACTAM 3,375 MG in SODIUM CHLORIDE 0.9% 100 ML IV SCH ×3 (01:29→18:11)
--- NOTE | 2016-10-29 08:27 | CT Report ---
CT guided chest tube/cath, US thoracentesis w tube place Indication: Loculated right pleural fluid, likely empyema. CT-GUIDED RIGHT CHEST TUBE PLACEMENT Description: A formal timeout was performed. Initially, patient was evaluated with ultrasound and complex fluid was identified in the posterior right lung base. After sterile prep and drape the area, a vascular needle was advanced into the area under sonographic guidance. Captured sonographic image documents needle position. However, aspirates were attempted but unsuccessful, possibly due to either loculations or viscous fluid. At this point, decision was made to transfer to CT for CT guided placement. Patient was placed supine on the CT scanner and images of the chest obtained. This confirmed loculated pleural fluid on the right. From an anterolateral approach, skin was prepped and draped in a sterile fashion and a vascular needle advanced into the pleural fluid. There was return of straw-colored watery fluid was sent for culture and Gram stain. Needle was removed over wire and a 10 [place] pigtail drain catheter placed in the pleural fluid. Pigtail was formed and the catheter anchored with a StatLock device. It was connected to a Pleur-evac. During transfer the patient from the CT scan table to his bed, the catheter was inadvertently removed. Therefore, the above procedure was repeated in its entirety with replacement of a 10 [place] catheter at the same site. Impression: Placement of 10 [place] right pleural drain catheter as described. PROCEDURE INTERPRETED AT [facility] DEPARTMENT OF RADIOLOGY Final Report Signed by: Wilfred Thakkar M.D.
--- NOTE | 2016-10-29 08:30 | Pulmonology Progress Note ---
Pulmonary - PN: Subj Interval history: Mr. Arreguin is a 60 year old black male that has a history of hypertension and has been a smoker. He has a history of GE reflux. He apparently had an aneurysm that ruptured he said he had a craniotomy at [facility]. He apparently is quite debilitated from this but he does walk with a walker. He said the past couple days he has not been able to get out of bed. He comes in now with a low-grade fever and elevated white count and looks like he has pneumonia and possible empyema. He says he has not been vomiting and he does cough a little bit. He is not complaining of much shortness of breath or chest pain. He denies having trouble swallowing. He does not appear to be very active and certainly appears chronically ill. The patient has been on antibiotics and has a small catheter draining his chest. His chest x-ray is really not improved. Patient does not appear toxic with high fever. He says he is breathing okay. Nothing is showing up on culture. He has an indolent course but his lung still looks bad. Will ask surgery to see about a decortication. Exam (Progress Note) - Constitutional Vitals: Period Temp Pulse Resp BP Sys/Palm Pulse Ox Last 24 Hr 97.2 F-98.3 F 65-79 18-22 138-179/89-104 94-99 Exam: General appearance: no acute distress, under weight, other (He looks comfortable in bed and is chronically ill-appearing. He still does not have any distress. He looks quite comfortable) - Head Head exam: Present: normal inspection - Eye Eye exam: Present: EOMI. Absent: scleral icterus Pupils: Present: JONATHAN - ENT ENT exam: Present: normal exam - Neck Neck exam: Absent: lymphadenopathy, thyromegaly - Respiratory Respiratory exam: Present: He still has decreased breath sounds on the right side. He is not wheezing. He has a small chest tube on the right. He does not have much drainage from his tube. - Cardiovascular Cardiovascular exam: Present: regular rate and rhythm, tachycardia. Absent: gallop, systolic murmur - GI/Abdominal GI/Abdominal exam: Present: normal bowel sounds, soft. Absent: organomegaly, tenderness - Extremities Exam Extremities exam: Absent: calf tenderness, edema - Neurological Exam Neurological exam: Present: alert, motor sensory deficit (He does appear to be very weak) - Psychiatric Psychiatric exam: Present: normal affect - Skin Skin exam: Present: warm, dry Results - Labs CBC & BMP: 10/27/16 03:21 10/27/16 03:21 - Diagnostic Findings Procedure: Chest x-ray: image reviewed by me, report reviewed by me (Chest x- ray has not changed much.) Assessment and Plan (1) Empyema Status: Acute Assessment and plan: His chest x-ray and clinical picture certainly looks like he could have empyema. His pleural fluid is exudative but not terrible looking. His chest x- ray is not really clearing any. Will ask surgery to evaluate. Current Visit: Yes (2) History of cerebral hemorrhage Status: Acute Assessment and plan: Patient says he has had a craniotomy at [facility] for cerebral hemorrhage. His CT is fairly stable at present. Current Visit: Yes (3) Pneumonia Status: Acute Assessment and plan: Patient will be treated for pneumonia. So far there is nothing growing on culture. His chest x-ray does not look any better. He may need decortication. I will continue with his antibiotic therapy. Current Visit: Yes Qualifiers: Pneumonia type: due to unspecified organism Laterality: right Lung location: lower lobe of lung Qualified Code(s): J18.1 - Lobar pneumonia, unspecified organism
--- NOTE | 2016-10-29 08:35 | XRay Report ---
XR chest 1V portable Indication: Pneumonia with a pleural effusion Comparison: Chest x-ray October 27, 2016 Technique: Single frontal view of the chest. Findings: The cardiomediastinal silhouette is stable in configuration. Question mild interval decrease in right pleural fluid with moderate amount remaining. Significant atelectasis/consolidation remains within the right mid and lower lung. Right-sided chest tube again projects over the right lower lung. Visualized osseous and surrounding soft tissue structures appear grossly unchanged. IMPRESSION: As above. PROCEDURE INTERPRETED AT [facility] DEPARTMENT OF RADIOLOGY Final Report Signed by: Dr Vinh Caruso
[2016-10-29] MEDS: ENOXAPARIN 40 MG/0.4 ML SYRINGE SUBCUT SCH (09:03)
[2016-10-29] MEDS: PANTOPRAZOLE 40 MG TABLET PO SCH (09:04)
[2016-10-29] MEDS ORDERED: ALTEPLASE 2 MG VIAL INTRAPLEUR ONE (11:00)
[2016-10-29] MEDS ORDERED: ALTEPLASE 5 MG in SYRINGE 1 EACH INTRAPLEUR ONE (11:00)
--- NOTE | 2016-10-29 11:16 | Pathology Report from [facility] ---
[facility] ACCESSION # : [id number] PATIENT NAME : Roberto Arreguin ORDERING DR : CK LEWIS MD CLINICAL HX: Pneumonia with present pleural effusion; R/O cancer POST-OP DX: Same SPECIMEN INFO: Fluid,Pleural - 5 mls yellow, hazy with clot CLASS: I CLASS COMMENTS: Rare inflammatory cells, mesothelials, proteinaceous material. No atypia seen.CELL BLOCK: Same CLASS LEGEND: CLASS 0 Material inadequate for diagnosis because of (see comment) CLASS I Absence of atypical or abnormal cells CLASS II Atypical Cytology but no evidence of malignancy CLASS III Cytology suggestive of but not conclusive for malignancy CLASS IV Cytology strongly suggestive of malignancy CLASS V Cytology conclusive for malignancy COLLECTED DATE: 10/28/2016 [facility] REPORT DATE: 10/29/2016 ELECTRONICALLY SIGNED BY: Flavio Miranda III, M.D. 10/29/2016 - 8:18:13 [facility]RON
--- NOTE | 2016-10-29 13:09 | Cardiothoracic Consult ---
Assessment and Plan - Time spent with patient Time spent with patient: Greater than 30 minutes (1) Empyema Status: Acute Assessment and plan: 60-year-old male with loculated right pleural effusion. The patient had an IR placed drain which failed to drain the right pleural cavity completely. I injected 5 mg of TPA mixed with 50 cc of saline into the drain with hopes to break the loculations and eventually drained the chest cavity. We will repeat this another time if it failed to help this time. If he continues to have persistent loculated pleural effusion he will need decortication by early next week. Current Visit: Yes History of Present Illness - Data of Consult Patient: new to practice Consult date: 10/29/16 - Consult Narrative Reason for consult: Persistent loculated pleural effusion History of present illness: Mr. Arreguin is a 60 year old male who has been having right pleural effusion. The patient has been a symptomatically. An IR drain was placed however it failed to drain the fluid completely. I was consulted for other options to drain the right pleural cavity. CC: Keny Chopra MD - Home Medications and Allergies Home Medications: Home Medications Medication Instructions Recorded Confirmed Type Benzonatate [Tessalon] 100 mg PO TID PRN 10/24/16 10/24/16 History Carvedilol 25 mg PO BID 10/24/16 10/24/16 History FLUoxetine [PROzac] 20 mg PO QAM 10/24/16 10/24/16 History Methocarbamol Tab [Robaxin Tab] 750 mg PO BID 10/24/16 10/24/16 History Pantoprazole Tab [Protonix Tab] 40 mg PO QAM 10/24/16 10/24/16 History Allergies/Adverse Reactions: Allergies Allergy/AdvReac Type Severity Reaction Status Date / Time No Known Allergies Allergy Unverified 10/24/16 09:20 12 point system: reviewed and no additional remarkable complaints except as stated (HPI) Medical,Surgical,& Family Hx - Medical History Cardio: History of: Hypertension Neurology: History of: Cerebrovascular Accident (09/26 with right sided weakness) Gastrointestinal: History of: GERD - Social History Smoking Status: Former smoker Frequency of Alcohol Use: None Type of Drug Use: None Physical Examination Vital Signs Temp Pulse Resp BP Pulse Ox 99.0 F 134 H 18 112/85 97 10/24/16 09:15 10/24/16 09:15 10/24/16 09:15 10/24/16 09:15 10/24/16 09:15 General: Present: Appears Well HEENT: Present: PERRL Neck: Present: Supple Neck Cardiac: Present: Reg Rate and Rhythm Lungs: Present: Bibasilar Rales, Wheezes, Absent Breath Sounds (Right side) Result/EKG - Labs CBC & BMP: 10/27/16 03:21 10/27/16 03:21
--- NOTE | 2016-10-29 13:11 | Operative Note ---
Date of procedure: 10/29/16 Pre-op diagnosis: Persistent pleural effusion Post-op diagnosis: same Procedure: Bedside instillation of TPA and to the chest tube The drain was disconnected from the pleural VAC. The area was prepped and draped in a sterile fashion. I injected 50 cc of saline mixed with the 5 mg of TPA. I clamped the tube at this point. I instructed the nurse to keep the patient in 45 for 1 hour. Flat for 1 hour. Then half an hour on each side prior to connecting the tube back to suction. The nurse understood and she will follow the plan. The patient tolerated the procedure well. Surgeon / Physician: Adonay Parry Estimated blood loss: none Specimens: none sent Condition: stable Results - Labs CBC & BMP: 10/27/16 03:21 10/27/16 03:21 Discharge Plan - Discharge Medications No Action Methocarbamol Tab [Robaxin Tab] 750 mg PO BID Carvedilol 25 mg PO BID FLUoxetine [PROzac] 20 mg PO QAM Benzonatate [Tessalon] 100 mg PO TID PRN PRN Reason: Cough Pantoprazole Tab [Protonix Tab] 40 mg PO QAM - Follow Up or Referral - Forms/Instructions
[2016-10-29] MEDS: SODIUM CHLORIDE 0.9% 1,000 ML IV SCH (15:40)
--- NOTE | 2016-10-29 16:04 | Hospitalist Progress Note ---
Assessment and Plan (1) Pneumonia Status: Acute Assessment and plan: Continue IV Antibiotics Current Visit: Yes Qualifiers: Pneumonia type: due to unspecified organism Laterality: right Lung location: lower lobe of lung Qualified Code(s): J18.1 - Lobar pneumonia, unspecified organism (2) Empyema Status: Acute Assessment and plan: Pt has a Right chest Tube. Appreciate Dr Sarthak chavez. Current Visit: Yes Hospitalist: Subjective Interval history: 58-year-old male with pneumonia and empyema, his breathing is comfortable. Exam - Constitutional Vitals: Period Temp Pulse Resp BP Sys/Palm Pulse Ox Last 24 Hr 97.2 F-98.3 F 65-90 18-22 144-179/89-104 94-99 Exam: General: [No Acute Distress] HEENT: [Normocephalic, atraumatic, Extra ocular movements intact] Neck: [Supple, No JVD] Chest: [Clear to auscultation B/L] CV: [S1 + S2 audible without murmur, gallop or rub] Abd: [soft, NT, Non-distended, BS +] Ext: [No edema] Skin: [No purpura, bruising or rash] Rheumatologic: [No Joint deformities] Neurologic: [Awake and alert] Results - Labs CBC & BMP: 10/27/16 03:21 10/27/16 03:21 - Impressions Assessment and Plan (1) Pneumonia Status: Acute Assessment and plan: Continue IV Antibiotics Current Visit: Yes Qualifiers: Pneumonia type: due to unspecified organism Laterality: right Lung location: lower lobe of lung Qualified Code(s): J18.1 - Lobar pneumonia, unspecified organism (2) Empyema Status: Acute Assessment and plan: Pt has a Right chest Tube, but does have a loculated empyema. He received TPA in the pleural cavity by cardiothoracic surgery, may need decortication if loculations fail to respond. Current Visit: Yes
[2016-10-29] MEDS: LEVOFLOXACIN INJ 750 MG in PREMIX 1 EACH IV SCH (21:59)
[2016-10-30] MEDS: HYDROmorphone 2 MG/1 ML VIAL IV PRN ×2 (00:39→21:26)
[2016-10-30] MEDS: PIPERACILLIN/TAZOBACTAM 3,375 MG in SODIUM CHLORIDE 0.9% 100 ML IV SCH ×3 (01:33→16:44)
[2016-10-30] MEDS: CLINDAMYCIN INJ 900 MG in PREMIX 1 EACH IV SCH ×3 (10:19→23:56)
[2016-10-30] MEDS: ENOXAPARIN 40 MG/0.4 ML SYRINGE SUBCUT SCH (10:33)
[2016-10-30] MEDS: PANTOPRAZOLE 40 MG TABLET PO SCH (10:33)
--- NOTE | 2016-10-30 10:50 | Pulmonology Progress Note ---
Pulmonary - PN: Subj Interval history: Mr. Arreguin is a 60 year old black male that has a history of hypertension and has been a smoker. 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 He apparently is quite debilitated from this but he does walk with a walker. He said the past couple days he has not been able to get out of bed. He comes in now with a low-grade fever and elevated white count and looks like he has pneumonia and possible empyema. He says he has not been vomiting and he does cough a little bit. He is not complaining of much shortness of breath or chest pain. He denies having trouble swallowing. He does not appear to be very active and certainly appears chronically ill. The patient had TPA placed in his catheter and does have a little more drainage now. He still looks reasonably comfortable without any fever or shortness of breath. Will check another chest x-ray tomorrow. Exam (Progress Note) - Constitutional Vitals: Period Temp Pulse Resp BP Sys/Palm Pulse Ox Last 24 Hr 97.0 F-97.9 F 75-90 20-22 140-163/85-106 93-98 Exam: General appearance: no acute distress, under weight, other (He looks alert and comfortable sitting up in bed.) - Head Head exam: Present: normal inspection - Eye Eye exam: Present: EOMI. Absent: scleral icterus Pupils: Present: JONATHAN - ENT ENT exam: Present: normal exam - Neck Neck exam: Absent: lymphadenopathy, thyromegaly - Respiratory Respiratory exam: Present: He still has decreased breath sounds on the right side. He is not wheezing. He has a small chest tube on the right. He does not have much drainage from his tube. - Cardiovascular Cardiovascular exam: Present: regular rate and rhythm, tachycardia. Absent: gallop, systolic murmur - GI/Abdominal GI/Abdominal exam: Present: normal bowel sounds, soft. Absent: organomegaly, tenderness - Extremities Exam Extremities exam: Absent: calf tenderness, edema, no signs of phlebitis - Neurological Exam Neurological exam: Present: alert, motor sensory deficit (He does appear to be very weak) - Psychiatric Psychiatric exam: Present: normal affect - Skin Skin exam: Present: warm, dry Results - Labs CBC & BMP: 10/27/16 03:21 10/27/16 03:21 Assessment and Plan (1) Empyema Status: Acute Assessment and plan: His chest x-ray and clinical picture certainly looks like he could have empyema. His pleural fluid is exudative but not terrible looking. His chest x- ray is not really clearing any. He did get TPA in his tube yesterday. He does have a little more drainage now. Will repeat a chest x-ray tomorrow. Current Visit: Yes (2) History of cerebral hemorrhage Status: Acute Assessment and plan: Patient says he has had a craniotomy at [place] for cerebral hemorrhage. His CT is fairly stable at present. Current Visit: Yes (3) Pneumonia Status: Acute Assessment and plan: Patient will be treated for pneumonia. So far there is nothing growing on culture. Clinically he seems to be doing okay and will repeat a chest x-ray. Current Visit: Yes Qualifiers: Pneumonia type: due to unspecified organism Laterality: right Lung location: lower lobe of lung Qualified Code(s): J18.1 - Lobar pneumonia, unspecified organism
--- NOTE | 2016-10-30 13:37 | Physician Query Form ---
CLICK EDIT DOCUMENT TO SELECT QUERY ANSWER --> OK --> SIGN Fatemeh Tong RN, CCDS Certified Clinical Assistant Research Scientist W) [phone] (f) [phone] [email or web address] PROVIDERS: Make your selection(s) from the choices in EACH section by typing an "x" and enter comments in the comment section. Please use your independent medical judgment in providing your response. This request does not imply that any particular answer is desired or expected. CLINICAL INDICATORS: (Providers should not edit this section) The below diagnosis was documented in the record, but is not consistently noted in subsequent documentation. The medical record indicates that the patient was admitted with Pneumonia, "Sepsis initiated related to HR 133, WBC 35.4, ordered Lactic Acid", and the patient is on antibiotics. Diagnosis: SEPSIS Please clarify the following: ( x) The above diagnosis was monitored, evaluated, and/or treated and is a confirmed diagnosis ( ) The above diagnosis was ruled out ( ) The above diagnosis is still a likely, suspected, probable diagnosis ( ) Other, please specify: ( ) Clinically unable to determine COMMENTS: PLEASE ALSO DOCUMENT RESPONSE IN PROGRESS NOTES AND/OR DISCHARGE SUMMARY Use of terms such as suspected, likely, or probable (associated with a specific diagnosis that is being evaluated, monitored, or treated as if it exists) are acceptable and can be restated in the discharge summary if not ruled out. MTDD
--- NOTE | 2016-10-30 15:53 | Hospitalist Progress Note ---
Assessment and Plan (1) Pneumonia Status: Acute Assessment and plan: Continue IV Antibiotics Current Visit: Yes Qualifiers: Pneumonia type: due to unspecified organism Laterality: right Lung location: lower lobe of lung Qualified Code(s): J18.1 - Lobar pneumonia, unspecified organism (2) Empyema Status: Acute Assessment and plan: Pt has a Right chest Tube. Appreciate Dr Sarthak chavez. Current Visit: Yes Hospitalist: Subjective Interval history: 60-year-old male hospital for treatment of pneumonia with empyema. He is breathing better. Exam - Constitutional Vitals: Period Temp Pulse Resp BP Sys/Palm Pulse Ox Last 24 Hr 97.0 F-97.9 F 75-88 20-22 140-163/85-106 93-98 Exam: General: [No Acute Distress] HEENT: [Normocephalic, atraumatic, Extra ocular movements intact] Neck: [Supple, No JVD] Chest: [Clear to auscultation B/L] CV: [S1 + S2 audible without murmur, gallop or rub] Abd: [soft, NT, Non-distended, BS +] Ext: [No edema] Skin: [No purpura, bruising or rash] Rheumatologic: [No Joint deformities] Neurologic: [Awake and alert] Results - Labs CBC & BMP: 10/27/16 03:21 10/27/16 03:21 - Impressions Assessment and Plan (1) Pneumonia with sepsis, POA Status: Acute Assessment and plan: Continue IV Antibiotics Levaquin, Zosyn and clindamycin Current Visit: Yes Qualifiers: Pneumonia type: due to unspecified organism Laterality: right Lung location: lower lobe of lung Qualified Code(s): J18.1 - Lobar pneumonia, unspecified organism (2) Empyema Status: Acute Assessment and plan: Pt has a Right chest Tube, but does have a loculated empyema. He received TPA in the pleural cavity by cardiothoracic surgery 10/29, may need decortication if loculations fail to respond. Monitor serial chest x-rays. Current Visit: Yes
[2016-10-30] MEDS: SODIUM CHLORIDE 0.9% 1,000 ML IV SCH ×3 (20:58→23:56)
[2016-10-30] MEDS: LEVOFLOXACIN INJ 750 MG in PREMIX 1 EACH IV SCH (21:02)
[2016-10-30 21:56] LABS: TB Ag minue Nil Result 0 IU/mL
[2016-10-31] MEDS: PIPERACILLIN/TAZOBACTAM 3,375 MG in SODIUM CHLORIDE 0.9% 100 ML IV SCH ×3 (01:18→18:47)
--- NOTE | 2016-10-31 07:16 | XRay Report ---
Exam: XR chest 1V portable Date: 10/31/2016 4:00 AM Indication: Follow-up effusion thoracotomy tube Comparison: 10/29/2016 Technical AP Findings:: Low volume right base pleural effusion atelectatic change present with a pigtail catheter in the right base. No pneumothorax present. The right hemidiaphragm and right heart border partially obscured. Left lung reveals no obvious infiltrates. Mediastinum is otherwise intact. Impression: 1. Persistent atelectatic change infiltrate and effusion in the right base with a pigtail catheter in place without obvious pneumothorax. Overall there is been little interval change. PROCEDURE INTERPRETED AT [facility] DEPARTMENT OF RADIOLOGY Final Report Signed by: Dr. Noé Roche
--- NOTE | 2016-10-31 07:35 | Cardiothoracic Progress Note ---
Assessment and Plan (1) Empyema Status: Acute Assessment and plan: 60-year-old male with loculated right pleural effusion. Repeat CT scan today showed minimal pleural effusion however it showed consolidation of his right lower lobe. This could be either continued pneumonia versus trapped lung. Either way the patient currently is completely asymptomatic and he is on room air. I would suggest removing the drain and as long as the patient is asymptomatic I would avoid surgical intervention at this point as the patient has extensive medical history, especially he is currently asymptomatic. If the patient becomes symptomatic or if this affects his respiratory status then we will proceed with decortication however it will be high risk. Current Visit: Yes Exam (Progress Note) - Constitutional Vitals: Period Temp Pulse Resp BP Sys/Palm Pulse Ox Last 24 Hr 97.0 F-98.1 F 75-119 20-160 133-162/90-110 92-98 Result/EKG - Labs CBC & BMP: 10/27/16 03:21 10/27/16 03:21 Labs: Laboratory Results - last 24 hr 10/28/16 13:13 TB (QFT) Gold In Tube Negative TB Test (QFT) Nil 0.05 TB Test Mitogen - Nil > 10.00 TB Test Antigen - Nil 0
--- NOTE | 2016-10-31 07:35 | CT Report ---
CT chest wo con Indication: Pleural effusion Comparison: 25 October 2016 Technique: Axial CT imaging of the chest was done at 3 mm intervals with intravenous contrast. Contrast dose was Omnipaque 350. Findings: There is a small pleural effusion, this is decreased since previous exam. There is minimal improvement of the right lower lobe airspace density. Small left pleural effusion and trace amount of left lower lung airspace density is present similar to previous. Remaining lungs show no evidence of infiltrates or airspace disease. No nodule or mass is identified. No effusion or pneumothorax is seen. The heart, mediastinum and great vessels appear within normal limits. No other abnormality is identified. Impression: Decreased right pleural effusion compared to previous study. There is minimal improvement of the right lower lung airspace density when compared to previous exam. This CT exam was performed using one or more the following dose reduction techniques: Automated exposure control, adjustment of the MA and/or KV according to patient size, or use of iterative reconstruction technique. PROCEDURE INTERPRETED AT [facility] DEPARTMENT OF RADIOLOGY Final Report Signed by: Dr. Irving Garibay
--- NOTE | 2016-10-31 08:12 | Pulmonology Progress Note ---
Pulmonary - PN: Subj Interval history: Mr. Arreguin is a 60 year old black male that has a history of hypertension and has been a smoker. 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 He apparently is quite debilitated from this but he does walk with a walker. He said the past couple days he has not been able to get out of bed. He comes in now with a low-grade fever and elevated white count and looks like he has pneumonia and possible empyema. He says he has not been vomiting and he does cough a little bit. He is not complaining of much shortness of breath or chest pain. He denies having trouble swallowing. He does not appear to be very active and certainly appears chronically ill. The patient has a catheter in his right chest that has been draining a little better. He is not having any fever now and he feels like his breathing is doing okay. His chest x-ray and CT did look better. He seems to be tolerating his antibiotics okay. Nothing has shown up on culture. Overall he is improving. He can probably continue with antibiotics for several weeks and may not need surgery. Exam (Progress Note) - Constitutional Vitals: Period Temp Pulse Resp BP Sys/Palm Pulse Ox Last 24 Hr 97.5 F-98.1 F 75-119 20-160 133-162/90-110 92-98 Exam: General appearance: no acute distress, under weight, other (He looks alert and comfortable sitting up in bed. He is in no respiratory distress.) - Head Head exam: Present: normal inspection - Eye Eye exam: Present: EOMI. Absent: scleral icterus Pupils: Present: JONATHAN - ENT ENT exam: Present: normal exam - Neck Neck exam: Absent: lymphadenopathy, thyromegaly - Respiratory Respiratory exam: Present: He still has decreased breath sounds on the right side. He is not wheezing. He has a small chest tube on the right. He does not have much drainage from his tube. - Cardiovascular Cardiovascular exam: Present: regular rate and rhythm, tachycardia. Absent: gallop, systolic murmur - GI/Abdominal GI/Abdominal exam: Present: normal bowel sounds, soft. Absent: organomegaly, tenderness - Extremities Exam Extremities exam: Absent: calf tenderness, edema, no signs of phlebitis - Neurological Exam Neurological exam: Present: alert, motor sensory deficit (He is moving around some and looks better.) - Psychiatric Psychiatric exam: Present: normal affect - Skin Skin exam: Present: warm, dry Results - Labs CBC & BMP: 10/27/16 03:21 10/27/16 03:21 - Diagnostic Findings Procedure: Chest x-ray: image reviewed by me, report reviewed by me (Chest x- ray shows improving infiltrate and effusion.) Assessment and Plan (1) Empyema Status: Acute Assessment and plan: His chest x-ray and clinical picture certainly looks like he could have empyema. His pleural fluid is exudative but not terrible looking. Clinically he is doing better and his x-ray is improving now. He can continue with antibiotics. Current Visit: Yes (2) History of cerebral hemorrhage Status: Acute Assessment and plan: Patient says he has had a craniotomy at [place] for cerebral hemorrhage. His CT is fairly stable at present. Current Visit: Yes (3) Pneumonia Status: Acute Assessment and plan: Patient will be treated for pneumonia. So far there is nothing growing on culture. Clinically he is getting better. He is not having any fever or shortness of breath. His chest x-ray is improving. Current Visit: Yes Qualifiers: Pneumonia type: due to unspecified organism Laterality: right Lung location: lower lobe of lung Qualified Code(s): J18.1 - Lobar pneumonia, unspecified organism
[2016-10-31] MEDS: CLINDAMYCIN INJ 900 MG in PREMIX 1 EACH IV SCH ×2 (08:58→17:08)
[2016-10-31] MEDS: ENOXAPARIN 40 MG/0.4 ML SYRINGE SUBCUT SCH (09:00)
[2016-10-31] MEDS: PANTOPRAZOLE 40 MG TABLET PO SCH (09:01)
--- NOTE | 2016-10-31 12:21 | Hospitalist Progress Note ---
Assessment and Plan (1) Pneumonia Status: Acute Assessment and plan: Continue IV Antibiotics Current Visit: Yes Qualifiers: Pneumonia type: due to unspecified organism Laterality: right Lung location: lower lobe of lung Qualified Code(s): J18.1 - Lobar pneumonia, unspecified organism (2) Empyema Status: Acute Assessment and plan: Pt has a Right chest Tube. Appreciate Dr Sarthak chavez. Current Visit: Yes Hospitalist: Subjective Interval history: 60-year-old male hospital for treatment of pneumonia with empyema. He is breathing better. Exam - Constitutional Vitals: Period Temp Pulse Resp BP Sys/Palm Pulse Ox Last 24 Hr 97.5 F-98.1 F 75-119 18-160 133-162/90-110 92-98 Exam: General: [No Acute Distress] HEENT: [Normocephalic, atraumatic, Extra ocular movements intact] Neck: [Supple, No JVD] Chest: [Clear to auscultation B/L] CV: [S1 + S2 audible without murmur, gallop or rub] Abd: [soft, NT, Non-distended, BS +] Ext: [No edema] Skin: [No purpura, bruising or rash] Rheumatologic: [No Joint deformities] Neurologic: [Awake and alert] Results - Labs CBC & BMP: 10/27/16 03:21 10/27/16 03:21 - Impressions Assessment and Plan: (1) Pneumonia with sepsis, POA Status: Acute Assessment and plan: Continue IV Antibiotics Levaquin, Zosyn and clindamycin Current Visit: Yes Qualifiers: Pneumonia type: due to unspecified organism Laterality: right Lung location: lower lobe of lung Qualified Code(s): J18.1 - Lobar pneumonia, unspecified organism (2) Empyema Status: Acute Assessment and plan: Pt has a Right chest Tube, but does have a loculated empyema. He received TPA in the pleural cavity by cardiothoracic surgery 10/29, continue medical treatment. Current Visit: Yes
[2016-10-31] MEDS ORDERED: SODIUM CHLORIDE 0.9% 0 ML IV ONE (17:40)
[2016-10-31] MEDS ORDERED: SODIUM CHLORIDE 0.9% 50 ML IV ONE (18:26)
[2016-10-31] MEDS: SODIUM CHLORIDE 0.9% 1,000 ML IV SCH ×3 (19:23→19:28)
[2016-10-31] MEDS: LEVOFLOXACIN INJ 750 MG in PREMIX 1 EACH IV SCH (20:57)
[2016-11-01] MEDS: CLINDAMYCIN INJ 900 MG in PREMIX 1 EACH IV SCH ×3 (00:15→15:30)
[2016-11-01] MEDS: PIPERACILLIN/TAZOBACTAM 3,375 MG in SODIUM CHLORIDE 0.9% 100 ML IV SCH ×3 (03:05→17:57)
[2016-11-01] MEDS: SODIUM CHLORIDE 0.9% 1,000 ML IV SCH ×2 (07:35→11:00)
[2016-11-01] MEDS: PANTOPRAZOLE 40 MG TABLET PO SCH (08:14)
[2016-11-01] MEDS: ENOXAPARIN 40 MG/0.4 ML SYRINGE SUBCUT SCH (08:14)
--- NOTE | 2016-11-01 13:28 | XRay Report ---
XR chest post procedure Indication: Chest tube removal Comparison: 31 October 2016 Findings: The heart and mediastinum are normal in size and configuration. The pulmonary vascularity is normal in caliber. Right lower lung density and effusion are present, similar to previous exam. The chest tube has been removed. No other lung infiltrates, effusions, pneumothorax or other abnormality is demonstrated. Impression: Chest tube removal. No other significant change. PROCEDURE INTERPRETED AT [facility] DEPARTMENT OF RADIOLOGY Final Report Signed by: Dr. Irving Garibay
--- NOTE | 2016-11-01 15:29 | Pulmonology Progress Note ---
Pulmonary - PN: Subj Interval history: Mr. Arreguin is a 60 year old black male that has a history of hypertension and has been a smoker. 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 He apparently is quite debilitated from this but he does walk with a walker. He said the past couple days he has not been able to get out of bed. He comes in now with a low-grade fever and elevated white count and looks like he has pneumonia and possible empyema. He says he has not been vomiting and he does cough a little bit. He is not complaining of much shortness of breath or chest pain. He denies having trouble swallowing. He does not appear to be very active and certainly appears chronically ill. The patient has a catheter in his right chest that has been draining a little better. He is not having any fever now and he feels like his breathing is doing okay. His chest x-ray and CT did look better. He seems to be tolerating his antibiotics okay. His white count is better and overall he is feeling better. The small chest tube is coming out today. We will probably just need to follow him. Exam (Progress Note) - Constitutional Vitals: Period Temp Pulse Resp BP Sys/Palm Pulse Ox Last 24 Hr 97.2 F-98.2 F 72-102 16-22 102-169/90-98 94-99 Exam: General appearance: no acute distress, under weight, other (He looks alert and comfortable sitting up in bed. He looks like he feels better overall. He is in no respiratory distress.) - Head Head exam: Present: normal inspection - Eye Eye exam: Present: EOMI. Absent: scleral icterus Pupils: Present: JONATHAN - ENT ENT exam: Present: normal exam - Neck Neck exam: Absent: lymphadenopathy, thyromegaly - Respiratory Respiratory exam: Present: He still has decreased breath sounds on the right side. He is not wheezing. He has a small chest tube on the right. He does not have much drainage from his tube. He has been quite stable. - Cardiovascular Cardiovascular exam: Present: regular rate and rhythm, tachycardia. Absent: gallop, systolic murmur - GI/Abdominal GI/Abdominal exam: Present: normal bowel sounds, soft. Absent: organomegaly, tenderness - Extremities Exam Extremities exam: Absent: calf tenderness, edema, no signs of phlebitis - Neurological Exam Neurological exam: Present: alert, motor sensory deficit (He is moving around some and looks better.) - Psychiatric Psychiatric exam: Present: normal affect - Skin Skin exam: Present: warm, dry Results - Labs CBC & BMP: 10/27/16 03:21 10/27/16 03:21 - Diagnostic Findings Procedure: Chest x-ray: image reviewed by me, report reviewed by me (Chest x- ray still shows some pleural fluid but overall may be a little better.) Assessment and Plan (1) Empyema Status: Acute Assessment and plan: His chest x-ray and clinical picture certainly looks like he could have empyema. His pleural fluid is exudative but not terrible looking. Clinically he is doing better and his x-ray is improving now. His chest tube will come out today. He will probably need to take antibiotics for anaerobic infection for several weeks. Current Visit: Yes (2) History of cerebral hemorrhage Status: Acute Assessment and plan: Patient says he has had a craniotomy at [place] for cerebral hemorrhage. His CT is fairly stable at present. Current Visit: Yes (3) Pneumonia Status: Acute Assessment and plan: Patient will be treated for pneumonia. Clinically he is doing better. He will need to take antibiotics for several weeks. We can probably follow him in the clinic. Current Visit: Yes Qualifiers: Pneumonia type: due to unspecified organism Laterality: right Lung location: lower lobe of lung Qualified Code(s): J18.1 - Lobar pneumonia, unspecified organism
--- NOTE | 2016-11-01 16:32 | Hospitalist Progress Note ---
Assessment and Plan (1) Pneumonia Status: Acute Assessment and plan: Continue IV Antibiotics Current Visit: Yes Qualifiers: Pneumonia type: due to unspecified organism Laterality: right Lung location: lower lobe of lung Qualified Code(s): J18.1 - Lobar pneumonia, unspecified organism (2) Empyema Status: Acute Assessment and plan: Pt has a Right chest Tube. Appreciate Dr Sarthak chavez. Current Visit: Yes Hospitalist: Subjective Interval history: 60-year-old male with pneumonia and empyema. He is breathing better today. Exam - Constitutional Vitals: Period Temp Pulse Resp BP Sys/Palm Pulse Ox Last 24 Hr 97.3 F-98.2 F 72-102 16-22 102-169/91-98 94-99 Exam: General: [No Acute Distress] HEENT: [Normocephalic, atraumatic, Extra ocular movements intact] Neck: [Supple, No JVD] Chest: [Clear to auscultation B/L] CV: [S1 + S2 audible without murmur, gallop or rub] Abd: [soft, NT, Non-distended, BS +] Ext: [No edema] Skin: [No purpura, bruising or rash] Rheumatologic: [No Joint deformities] Neurologic: [Awake and alert] Results - Labs CBC & BMP: 10/27/16 03:21 10/27/16 03:21 - Impressions Assessment and Plan: (1) Pneumonia Status: Acute Assessment and plan: Continue IV Antibiotics Current Visit: Yes Qualifiers: Pneumonia type: due to unspecified organism Laterality: right Lung location: lower lobe of lung Qualified Code(s): J18.1 - Lobar pneumonia, unspecified organism (2) Empyema Status: Acute Assessment and plan: Right chest tube has been pulled out today. He will need antibiotics for several weeks. Current Visit: Yes He is quite deconditioned I have ordered physical and occupational therapy
[2016-11-01] MEDS: LEVOFLOXACIN INJ 750 MG in PREMIX 1 EACH IV SCH (22:24)
[2016-11-02] MEDS: CLINDAMYCIN INJ 900 MG in PREMIX 1 EACH IV SCH ×4 (00:21→23:53)
[2016-11-02] MEDS: PIPERACILLIN/TAZOBACTAM 3,375 MG in SODIUM CHLORIDE 0.9% 100 ML IV SCH ×3 (02:19→17:45)
[2016-11-02] MEDS: SODIUM CHLORIDE 0.9% 1,000 ML IV SCH ×3 (07:26→21:07)
[2016-11-02] MEDS: ENOXAPARIN 40 MG/0.4 ML SYRINGE SUBCUT SCH (07:59)
[2016-11-02] MEDS: PANTOPRAZOLE 40 MG TABLET PO SCH (07:59)
--- NOTE | 2016-11-02 08:24 | Hospitalist Progress Note ---
Assessment and Plan (1) Empyema Status: Acute Assessment and plan: Impression: 1. Right lower lobe pneumonia with empyema, probable trapped lung Plan: Continue current antibiotics. Physical therapy evaluation. He may need rehab prior to discharge. This note was completed using [employer] voice recognition software. There may be housing case manager errors as a result. Current Visit: Yes Hospitalist: Subjective Interval history: Follow-up pneumonia with empyema. The patient has had his chest tube removed. He still is short of breath. He is dyspneic with even minimal exertion. CT surgery has noted atelectasis of the right lower lobe, and suggested decortication only if the patient becomes symptomatic. Exam - Constitutional Vitals: Period Temp Pulse Resp BP Sys/Palm Pulse Ox Last 24 Hr 97.2 F-98.1 F 71-85 16-21 132-162/88-99 95-98 Vital signs are noted above. Heart is regular with no murmur or gallop. Left chest is fairly clear. He has decreased breath sounds in the lower two thirds of the right hemithorax. He is awake and alert. Results - Labs CBC & BMP: 10/27/16 03:21 10/27/16 03:21 Lab Results: I have reviewed the past 24 hour labs
--- NOTE | 2016-11-02 10:20 | Pulmonology Progress Note ---
Pulmonary - PN: Subj Interval history: Mr. Arreguin is a 60 year old black male that has a history of hypertension and has been a smoker. He has a history of GE reflux. He apparently had an aneurysm that ruptured he said he had a craniotomy at [place]. He apparently is quite debilitated from this but he does walk with a walker. He said the past couple days he has not been able to get out of bed. He comes in now with a low-grade fever and elevated white count and looks like he has pneumonia and possible empyema. He says he has not been vomiting and he does cough a little bit. He is not complaining of much shortness of breath or chest pain. He denies having trouble swallowing. He does not appear to be very active and certainly appears chronically ill. The patient is doing okay with the chest tube out. He says he is feeling better and not having any increased shortness of breath or cough. He has not been having any fever. He looks like he is breathing comfortably. He is quite debilitated and may need a swing bed. He can probably go on oral antibiotics soon. Exam (Progress Note) - Constitutional Vitals: Period Temp Pulse Resp BP Sys/Palm Pulse Ox Last 24 Hr 97.2 F-98.1 F 71-85 16-21 132-162/88-99 95-98 Exam: General appearance: no acute distress, under weight, other (He looks alert and comfortable sitting up in bed. He looks like he feels better overall. He is in no respiratory distress.) - Head Head exam: Present: normal inspection - Eye Eye exam: Present: EOMI. Absent: scleral icterus Pupils: Present: JONATHAN - ENT ENT exam: Present: normal exam - Neck Neck exam: Absent: lymphadenopathy, thyromegaly - Respiratory Respiratory exam: Present: He still has decreased breath sounds on the right side. He is not wheezing. He seems to be moving air okay. - Cardiovascular Cardiovascular exam: Present: regular rate and rhythm, tachycardia. Absent: gallop, systolic murmur - GI/Abdominal GI/Abdominal exam: Present: normal bowel sounds, soft. Absent: organomegaly, tenderness - Extremities Exam Extremities exam: Absent: calf tenderness, edema, no signs of phlebitis - Neurological Exam Neurological exam: Present: alert, motor sensory deficit (He is moving around some and looks better.) - Psychiatric Psychiatric exam: Present: normal affect - Skin Skin exam: Present: warm, dry Results - Labs CBC & BMP: 10/27/16 03:21 10/27/16 03:21 Assessment and Plan (1) Empyema Status: Acute Assessment and plan: He is feeling better and is chest symptoms are better. He can probably go home on oral antibiotic and will just have to follow him up in the office. Current Visit: Yes (2) History of cerebral hemorrhage Status: Acute Assessment and plan: Patient says he has had a craniotomy at [place] for cerebral hemorrhage. His CT is fairly stable at present. Current Visit: Yes (3) Pneumonia Status: Acute Assessment and plan: Patient will be treated for pneumonia. Clinically he is doing better. He will need to take antibiotics for several weeks. We can probably follow him in the clinic. Current Visit: Yes Qualifiers: Pneumonia type: due to unspecified organism Laterality: right Lung location: lower lobe of lung Qualified Code(s): J18.1 - Lobar pneumonia, unspecified organism
[2016-11-02] MEDS: LEVOFLOXACIN INJ 750 MG in PREMIX 1 EACH IV SCH (21:07)
[2016-11-03] MEDS: PIPERACILLIN/TAZOBACTAM 3,375 MG in SODIUM CHLORIDE 0.9% 100 ML IV SCH ×3 (01:58→17:55)
[2016-11-03] MEDS: SODIUM CHLORIDE 0.9% 1,000 ML IV SCH ×2 (08:12→10:44)
--- NOTE | 2016-11-03 08:25 | Hospitalist Progress Note ---
Assessment and Plan (1) Empyema Status: Acute Assessment and plan: Impression: 1. Right lower lobe pneumonia with empyema, probable trapped lung Plan: Continue current antibiotics, and await physical therapy evaluation. CT surgery to decide how symptomatic he is regarding need for decortication, as he cannot walk more than 5 feet without becoming dyspneic. This note was completed using [employer] voice recognition software. There may be senior operator errors as a result. Current Visit: Yes Hospitalist: Subjective Interval history: Follow-up pneumonia with empyema. The patient is still dyspneic. He is not able to make it past the bedside commode chair without becoming more dyspneic. Physical therapy did not see the patient yesterday. Exam - Constitutional Vitals: Period Temp Pulse Resp BP Sys/Palm Pulse Ox Last 24 Hr 97.5 F-98 F 73-97 16-20 145-162/89-97 95-99 Vital signs are noted above. Heart is regular with a soft systolic murmur no gallop. Breath sounds are decreased 2/[address] in the right chest. He is awake and alert. Results - Labs CBC & BMP: 10/27/16 03:21 10/27/16 03:21
[2016-11-03] MEDS: PANTOPRAZOLE 40 MG TABLET PO SCH (08:39)
[2016-11-03] MEDS: ENOXAPARIN 40 MG/0.4 ML SYRINGE SUBCUT SCH (08:39)
[2016-11-03] MEDS: CLINDAMYCIN INJ 900 MG in PREMIX 1 EACH IV SCH ×2 (08:39→17:22)
--- NOTE | 2016-11-03 10:10 | Pulmonology Progress Note ---
Pulmonary - PN: Subj Interval history: Mr. Arreguin is a 60 year old black male that has a history of hypertension and has been a smoker. He has a history of GE reflux. He apparently had an aneurysm that ruptured he said he had a craniotomy at [place]. He apparently is quite debilitated from this but he does walk with a walker. He said the past couple days he has not been able to get out of bed. He comes in now with a low-grade fever and elevated white count and looks like he has pneumonia and possible empyema. He says he has not been vomiting and he does cough a little bit. He is doing better and the pleural fluid was not that bad looking. He is not coughing much and no fever. He still cannot do much activity but he is quite debilitated after his CVA. He seems to be breathing comfortably now. He may need a rehab center. Exam (Progress Note) - Constitutional Vitals: Period Temp Pulse Resp BP Sys/Palm Pulse Ox Last 24 Hr 97.1 F-98 F 73-97 16-20 145-162/89-97 95-99 Exam: General appearance: no acute distress, under weight, other (He looks alert and comfortable sitting up in bed. He looks like he feels better overall. He is in no respiratory distress. He does look chronically ill.) - Head Head exam: Present: normal inspection - Eye Eye exam: Present: EOMI. Absent: scleral icterus Pupils: Present: JONATHAN - ENT ENT exam: Present: normal exam - Neck Neck exam: Absent: lymphadenopathy, thyromegaly - Respiratory Respiratory exam: Present: He still has decreased breath sounds on the right side. He is not wheezing. He seems to be moving air okay. - Cardiovascular Cardiovascular exam: Present: regular rate and rhythm, tachycardia. Absent: gallop, systolic murmur - GI/Abdominal GI/Abdominal exam: Present: normal bowel sounds, soft. Absent: organomegaly, tenderness - Extremities Exam Extremities exam: Absent: calf tenderness, edema, no signs of phlebitis - Neurological Exam Neurological exam: Present: alert, motor sensory deficit (He is moving around some and looks better.) - Psychiatric Psychiatric exam: Present: normal affect - Skin Skin exam: Present: warm, dry Results - Labs CBC & BMP: 10/27/16 03:21 10/27/16 03:21 Assessment and Plan (1) Empyema Status: Acute Assessment and plan: He is feeling better and is chest symptoms are better. He still cannot do much activity and will need some rehab. Will repeat a chest x-ray tomorrow. Current Visit: Yes (2) History of cerebral hemorrhage Status: Acute Assessment and plan: Patient says he has had a craniotomy at [place] for cerebral hemorrhage. His CT is fairly stable at present. Current Visit: Yes (3) Pneumonia Status: Acute Assessment and plan: Patient will be treated for pneumonia. Clinically he is doing better. He will need to take antibiotics for several weeks. He is quite debilitated and may need further rehab. Current Visit: Yes Qualifiers: Pneumonia type: due to unspecified organism Laterality: right Lung location: lower lobe of lung Qualified Code(s): J18.1 - Lobar pneumonia, unspecified organism
[2016-11-03] MEDS: LEVOFLOXACIN INJ 750 MG in PREMIX 1 EACH IV SCH (21:43)
[2016-11-04] MEDS: CLINDAMYCIN INJ 900 MG in PREMIX 1 EACH IV SCH ×2 (00:23→09:29)
[2016-11-04] MEDS: PIPERACILLIN/TAZOBACTAM 3,375 MG in SODIUM CHLORIDE 0.9% 100 ML IV SCH ×2 (02:28→11:03)
[2016-11-04] MEDS: ENOXAPARIN 40 MG/0.4 ML SYRINGE SUBCUT SCH (09:30)
[2016-11-04] MEDS: PANTOPRAZOLE 40 MG TABLET PO SCH (09:30)
--- NOTE | 2016-11-04 10:51 | XRay Report ---
History: Right lower lobe pneumonia and pleural effusion Date: 11/04/2016 Study: Chest x-ray PA and lateral Comparison exam: November 01, 2016 The cardiac silhouette is not enlarged. There is no mediastinal mass. The pulmonary vasculature is not engorged. The left lung is well-expanded and clear. There is continued atelectatic parenchymal consolidation in the right lung base and moderate or greater right pleural effusion. The right basilar parenchymal and pleural disease is grossly similar. Osseous structures are unchanged. Impression: Continued right basilar pneumonia and pleural effusion, grossly unchanged PROCEDURE INTERPRETED AT [facility] DEPARTMENT OF RADIOLOGY Final Report Signed by: Dr. Mora Turner
--- NOTE | 2016-11-04 12:04 | Pulmonology Progress Note ---
Pulmonary - PN: Subj Interval history: Mr. Arreguin is a 60 year old black male that has a history of hypertension and has been a smoker. He has a history of GE reflux. He apparently had an aneurysm that ruptured he said he had a craniotomy at [place]. He apparently is quite debilitated from this but he does walk with a walker. He said the past couple days he has not been able to get out of bed. He comes in now with a low-grade fever and elevated white count and looks like he has pneumonia and possible empyema. He says he has not been vomiting and he does cough a little bit. He is doing better and the pleural fluid was not that bad looking. He is not coughing much and no fever. He still cannot do much activity but he is quite debilitated after his CVA. The patient is not very toxic and he looks comfortable in bed. He is quite debilitated after his CVA. He says he is breathing okay. He still has a fairly large right pleural effusion. He certainly is not a great candidate for surgery. We can probably try oral antibiotics for several week and just follow his chest x-ray. Exam (Progress Note) - Constitutional Vitals: Period Temp Pulse Resp BP Sys/Palm Pulse Ox Last 24 Hr 97.2 F-98.7 F 75-93 18-22 138-169/80-104 96-99 Exam: General appearance: no acute distress, under weight, other (He is comfortable sitting up in bed and in no distress.) - Head Head exam: Present: normal inspection - Eye Eye exam: Present: EOMI. Absent: scleral icterus Pupils: Present: JONATHAN - ENT ENT exam: Present: normal exam - Neck Neck exam: Absent: lymphadenopathy, thyromegaly - Respiratory Respiratory exam: Present: He still has decreased breath sounds on the right side. He is not wheezing. He seems to be moving air okay. - Cardiovascular Cardiovascular exam: Present: regular rate and rhythm, tachycardia. Absent: gallop, systolic murmur - GI/Abdominal GI/Abdominal exam: Present: normal bowel sounds, soft. Absent: organomegaly, tenderness - Extremities Exam Extremities exam: Absent: calf tenderness, edema, no signs of phlebitis - Neurological Exam Neurological exam: Present: alert, motor sensory deficit (He is moving around some and looks better.) - Psychiatric Psychiatric exam: Present: normal affect - Skin Skin exam: Present: warm, dry Results - Labs CBC & BMP: 10/27/16 03:21 10/27/16 03:21 - Diagnostic Findings Procedure: Chest x-ray: image reviewed by me, report reviewed by me (Chest x- ray still shows a moderate right pleural effusion. It is hard to tell about the right lower lobe) Assessment and Plan (1) Empyema Status: Acute Assessment and plan: He is feeling better and is chest symptoms are better. He still cannot do much activity and will need some rehab. His chest x-ray is still very abnormal but stable. Will leave him on oral penicillin for 3 or 4 weeks. Current Visit: Yes (2) History of cerebral hemorrhage Status: Acute Assessment and plan: Patient says he has had a craniotomy at [place] for cerebral hemorrhage. His CT is fairly stable at present. Current Visit: Yes (3) Pneumonia Status: Acute Assessment and plan: Patient is not very toxic and seems to be breathing okay. We will continue antibiotics for now. Current Visit: Yes Qualifiers: Pneumonia type: due to unspecified organism Laterality: right Lung location: lower lobe of lung Qualified Code(s): J18.1 - Lobar pneumonia, unspecified organism
--- NOTE | 2016-11-04 16:01 | Hospitalist Progress Note ---
Assessment and Plan (1) Empyema Status: Acute Assessment and plan: s/p right chest tube removal on Friday. augmentin 2000 mg po bid. Current Visit: Yes (2) Generalized weakness Status: Acute Assessment and plan: pt and ot consult, no insurance Current Visit: Yes (3) Pneumonia Status: Acute Assessment and plan: Dr. garzon has changed him to po augmentin. Current Visit: Yes Qualifiers: Pneumonia type: due to unspecified organism Laterality: right Lung location: lower lobe of lung Qualified Code(s): J18.1 - Lobar pneumonia, unspecified organism (4) History of cerebral hemorrhage Status: Acute Assessment and plan: September 2016 patient needs walker for home. Current Visit: Yes (5) UTI (urinary tract infection) Status: Acute Assessment and plan: pseudomonas already treated Current Visit: Yes Qualifiers: Urinary tract infection type: site unspecified Hospitalist: Subjective Interval history: Patient sat on room air was 98%. His chest tube has been removed he still very diminished on the right side. Patient seems weak and debilitated. Exam - Constitutional Vitals: Period Temp Pulse Resp BP Sys/Palm Pulse Ox Last 24 Hr 97.2 F-98.7 F 75-93 18-22 138-169/80-112 96-99 Exam: Heart Rate-[RRR] Lungs-[diminished breath sounds on right] GI-[+bs soft, NT] Ext-[no edema] Neuro [Motor 4/5], [alert and oriented times 3] psych [normal mood and affect] General [no acute distress] Results - Labs CBC & BMP: 10/27/16 03:21 10/27/16 03:21 Lab Results: I have reviewed the past 24 hour labs Labs: Blood cultures 2 negative no growth, urine culture growing Pseudomonas - Diagnostic Findings Procedure: Chest x-ray: report reviewed by me (Chest x-ray from today shows continued right basilar pneumonia and pleural effusion)
[2016-11-04] MEDS: SODIUM CHLORIDE 0.9% 1,000 ML IV SCH ×2 (16:05→16:06)
[2016-11-04] MEDS: AMOXICILLIN/CLAV XR 1000 MG TABLET PO SCH (20:34)
[2016-11-05 06:15] LABS: Basophils % 0.3 % (0.0-0.8); Eosinophils # 0.2 10*3/uL (0.0-0.87); Eosinophils % 3.3 % (0.00-10.9); Hematocrit 35.9 VOL% (42.0-52.0); Immature Granulocytes % 0.4 %; Immature Granulocytes Absolute 0.03 #; Lymphocytes # 1.5 10*3/uL (1.4-4.0); Lymphocytes % 21.7 % (21.2-54.2); Mean Corpuscular HGB Conc 33.4 GM/DL (32-36); Mean Corpuscular Hemoglobin 28 PG (27-34); Mean Corpuscular Volume 83.5 FL (87-102); Monocytes # 0.6 10*3/uL (0.11-0.8); Monocytes % 9.2 % (1.7-12.7); Neutrophils # 4.5 10*3/uL (1.4-7.4); Neutrophils % 65.1 % (38.7-73.9); Platelet Count 528 T/CUMM (130-400); Red Cell Distribution Width 15.4 % (9.3-17.3); White Blood Count 6.9 T/CUMM (4-12)
[2016-11-05 06:42] LABS: Calcium 8.7 MG/DL (8.5-10.1); Potassium 3.7 MMOL/L (3.5-5.1)
[2016-11-05] MEDS: ENOXAPARIN 40 MG/0.4 ML SYRINGE SUBCUT SCH (09:11)
[2016-11-05] MEDS: AMOXICILLIN/CLAV XR 1000 MG TABLET PO SCH (09:11)
[2016-11-05] MEDS: PANTOPRAZOLE 40 MG TABLET PO SCH (09:11)
--- NOTE | 2016-11-05 09:58 | Discharge Summary ---
<Mio Pollock - Last Filed: 11/05/16 09:16> Hospital Course - Hospital Course Hospital Course: Mr. Arreguin is a 60 yr old black male with a past medical history of smoking, GERD, hypertension, and CVA presents to the ED on 10/24 for further evaluation of generalized weakness and episode of incontinence without loss of consciousness or confusion. Patient was accompanied by family who reported the increasing weakness. Patient has residual right-sided weakness since stroke in September 2016 and underwent rehab in [place] until able to ambulate with assistance. Patient stated on that particular morning he was unable to get out of the bed to go to the bathroom which resulted in him urinating on himself. On examination in the ED patient was found to have a WBC of 35.4, Na 135, and glucose of 142. Chest x-ray also showed large right pleural effusion with increased right lower lung density which indicated pneumonia. Patient was admitted to the hospitalist service for further evaluation and treatment of pneumonia and empyema. Patient right sided chest tube placed by Dr. Thakkar on October 25, 2016. Dr. Parry was consulted on October 29, 2016 at which time he introduced TPA into the chest tube. Patient was finally had his chest tube removed late last week. He has been saturating well on room air but still diminished on his right side with a persistent pleural effusion on chest x -ray. Patient has had a lengthy 12 day stay. Patient was treated with IV antibiotics (clindamycin, Levaquin, and Zosyn). Blood cultures were obtained and were negative. Dr. De León recommends 3 more weeks of Augmentin. Patient has no financial resources and does not have an nebulizer machine for home. He only receives Medicaid check but has no Medicaid insurance. We are offering [facility] with [facility] and we are hoping that child welfare social worker will pay for his antibiotics and nebulizer and blood pressure medicines. Patient will be discharged home to live with his son until he is financially able to be independent. Patient will have to follow-up with august Encarnacion in 1-2 weeks. Patient has no insurance to follow-up with pulmonary at this point. Discharge Plan - Discharge Data Disposition: Disch To Home/Self Care - Discharge Medications New Amoxicillin/Clav Xr Tab [Augmentin Xr Tab] 2,000 mg PO BID #84 tablet Carvedilol [Coreg] 6.25 mg PO BID #60 tablet Albuterol/Ipratropium Neb [Duoneb] 3 ml RESP TX RT Q6H PRN #120 vial PRN Reason: Shortness Of Breath/Wheezing Discontinued Methocarbamol Tab [Robaxin Tab] 750 mg PO BID Carvedilol 25 mg PO BID FLUoxetine [PROzac] 20 mg PO QAM Benzonatate [Tessalon] 100 mg PO TID PRN PRN Reason: Cough Pantoprazole Tab [Protonix Tab] 40 mg PO QAM - Follow Up or Referral Follow Up: [facility] [Provider Group] - 2 Weeks - Forms/Instructions Exam - Constitutional Vitals: Period Temp Pulse Resp BP Sys/Palm Pulse Ox Last 24 Hr 97.3 F-98.8 F 78-97 18-22 141-174/75-112 95-98 Discharge Results Procedures and tests throughout hospitalization: Pending Orders 10/26/16 AFB Culture/Smears Routine 10/26/16 11:17 Cytology Request Routine Labs on day of discharge: Labs from last 24 hours 11/05/16 11/05/16 05:20 05:20 WBC 6.9 RBC 4.30 Hgb 12.0 L Hct 35.9 L MCV 83.5 L MCH 28 MCHC 33.4 RDW 15.4 Plt Count 528 H MPV 9.0 L Neut % (Auto) 65.1 Lymph % (Auto) 21.7 Webster % (Auto) 9.2 Eos % (Auto) 3.3 Baso % (Auto) 0.3 Neut # (Auto) 4.5 Lymph # (Auto) 1.5 Webster # (Auto) 0.6 Eos # (Auto) 0.2 Baso # (Auto) 0.0 Immature Gran % 0.4 Nucleated RBC % 0.0 Immature Gran # 0.03 Nucleated RBCs # 0.00 Immature Plt Fraction 0.0 Sodium 143 Potassium 3.7 Chloride 110 H Carbon Dioxide 27 Anion Gap 9.7 BUN 4 L Creatinine 0.70 GFR Calculation 128 BUN/Creatinine Ratio 5.00 L Glucose 72 L Calculated Osmolality 280.0 Calcium 8.7 DS: Provider Date of admission: 10/24/16 11:26 Primary care physician: . No PCP Attending physician on admission: Keny Chopra MD Consults: 10/24/16 13:59 Consult to Physician [CONS] Routine Comment: Please evaluate for pneumonia and pleural effusion Consulting Provider: Jeff De León When should Consulting Provider be notified: Now Person Notified: [email or web address] Date Notified: 10/24/16 Time Notified: 14:50 10/29/16 08:32 Consult to Physician [CONS] Routine Comment: Consulting Provider: Adonay Parry When should Consulting Provider be notified: Now Person Notified: [email or web address] Date Notified: 10/29/16 Time Notified: 09:30 11/01/16 12:35 Consult to Occupational Therapy [CONS] Routine Reason for Occupational Therapy: Evaluate and Treat 11/02/16 08:25 Consult to Physical Therapy [CONS] Routine Reason for Physical Therapy: Evaluate and Treat 11/04/16 15:59 Consult to Case Mgmt/Social Srvs [CONS] Routine Reason for Case Mgmt/Social Srvs: Rehab Discharging clinician: Mio Pollock NP <Bhavana Singleton - Last Filed: 11/05/16 11:56> Hospital Course - Time spent with patient Time with patient DS: Greater than 30 minutes (50 min) Diagnosis - Discharge Diagnosis (1) Empyema Status: Acute (2) Generalized weakness Status: Acute (3) Pneumonia Status: Acute (4) History of cerebral hemorrhage Status: Acute (5) UTI (urinary tract infection) Status: Acute Discharge Plan - Discharge Data Condition at Discharge: Stable Discharge Diet: heart healthy Activity: resume usual activities as tolerated, as per physical therapy Hygiene: no restrictions Weight Bearing at Discharge: full weight bearing Driving: not until seen by doctor Exam - Constitutional General appearance: normal weight, no acute distress - Respiratory Respiratory exam: Present: clear to auscultation bilaterally, decreased breath sounds - Cardiovascular Cardiovascular exam: Present: regular rate and rhythm. Absent: systolic murmur - GI/Abdominal GI/Abdominal exam: Present: normal bowel sounds, soft. Absent: tenderness - Extremities Exam Extremities exam: Present: normal inspection, normal capillary refill - Neurological Exam Neurological exam: Present: alert, oriented X3 - Psychiatric Psychiatric exam: Present: normal affect, normal mood
[2016-11-05 12:01] VITALS: BP 161/103
== END 2016-11-05 15:00 | disposition home or self-care (01) | DRG 871 ==
LOC: N.ED 09:11 → SUATTDRO 11:26 → N.EDINP 11:26 → N.2E 13:04
PROVIDERS: ADMIT Hospitalist; ATTEND Internal Medicine